=== PATIENT | female | born 1995 | race African-American/Black ===

== ENCOUNTER 2021-08-03 17:20 | Emergency (ER) | payer OTHER, SELFPAY ==
[2021-08-03 17:51] VITALS: BP 163/79; PULSE 91; RESP 20; TEMP 37.5; O2SAT 100; BMI 42.0
[2021-08-03 18:33] LABS: COVID-19 Test Positive (Negative)
--- NOTE | 2021-08-03 19:46 | ED.URI ---
HPI - URI/Sore Throat General Chief Complaint: Upper Respiratory Symptoms Stated Complaint: diff breathing covid + Time Seen by Provider: 08/03/21 19:46 Source: patient Mode of arrival: ambulatory Limitations: no limitations History of Present Illness HPI Narrative: 26-year-old female with a history of obesity, childhood asthma who presents to the ER with dry hacking cough for the last 10 days. She reports being seen at [facility] where she had a negative COVID test and was treated for bronchitis with an antibiotic and an inhaler. She continued to feel unwell despite these treatments. Earlier this week she did have 2 days of feeling much better. About 2 days ago she started feeling very weak and fatigued. Her dry hacking cough persisted. She then started spiking fevers up to 105 at home. She has been taking Tylenol with improvement in the fevers. She denies any confusion, hallucinations, seizures. MD elicited complaint: fever and cough Onset (ago): day(s) Consistency: constant Severity: moderate Able to tolerate fluids by mouth: Yes Exacerbating factors: nothing Relieving factors: nothing Context: sick contacts Associated symptoms: fever, chills, myalgias, headache, nasal congestion, sore throat and cough Treatments prior to arrival: acetaminophen Related Data Previous Rx's Medication Instructions Recorded benzonatate 100 mg capsule 100 mg PO TID PRN #30 cap 08/03/21 fluticasone propionate 50 1 spray INTRANASAL Q12H #16 g 08/03/21 mcg/actuation nasal spray,suspension (Flonase Allergy Relief) prednisone 20 mg tablet 40 mg PO DAILY #10 tab 08/03/21 Allergies Allergy/AdvReac Type Severity Reaction Status Date / Time hydrocodone [From VICODIN] Allergy Unknown HIVES, SOB Verified 08/03/21 17:50 ibuprofen [From MOTRIN] Allergy Unknown HIVES, SOB Verified 08/03/21 17:50 naproxen [NAPROXEN] Allergy Unknown HIVES, SOB Verified 08/03/21 17:50 Penicillins [PENICILLINS] Allergy Unknown HIVES Verified 08/03/21 17:50 Sulfa (Sulfonamide Allergy Unknown HIVES, SOB Verified 08/03/21 17:50 Antibiotics) [SULFA (SULFONAMIDE ANTIBIOTICS)] sumatriptan [From IMITREX] Allergy Unknown HIVES, SOB Verified 08/03/21 17:50 Review of Systems Review of Systems: Constitutional:+ Fever, + Chills ENT/Mouth: No sore throat, No Rhinorrhea, No Swallowing Difficulty Cardiovascular: No Chest Pain, No SOB, No Orthopnea Respiratory: + Cough, No Sputum, No Wheezing, No dyspnea Gastrointestinal: + Nausea, No Vomiting, No Diarrhea, No abdominal Pain Genitourinary: No Dysuria Musculoskeletal: No joint pain, No Myalgias Skin: No Skin Lesions, No rash Neuro: + Weakness, No Numbness, No Dizziness, + Headache Heme/Lymph: No Bruising, No Lymphadenopathy PMFSH Social History Social History Advance Directives: No Advance Directives Information Provided: No Physical Exam Vital Signs: Vital Signs: Last Vital Signs Temp 99.5 F 08/03/21 17:51 Pulse 91 08/03/21 17:51 Resp 20 08/03/21 17:51 BP 163/79 H 08/03/21 17:51 Pulse Ox 100 08/03/21 17:51 BMI result Body Mass Index 42.0 Appearance: Alert. Oriented X3. No acute distress. Eyes: Pupils equal, round and reactive to light. ENT: Pharynx nwith mild generalized erythema Neck: Normal inspection. Neck supple. CVS: Normal heart rate and rhythm. Pulses normal. Respiratory: No respiratory distress. Breath sounds normal. Dry cough with deep inspiration Skin: Skin warm and dry. Normal skin color. Normal skin turgor. No rashes. Extremities: No lower extremity edema. Neuro: Oriented X 3. Grossly normal, nonfocal Course Course Course Narrative: 26-year-old female who is vaccinated for COVID-19 presents to the ER with weakness, headache, dry hacking cough and a fever reported 105 at home. She is afebrile on arrival after taking Tylenol. She is in no distress with SpO2 100% on room air. Her COVID test is positive. Her most recent symptoms of weakness fatigue and headache are only 3 days old. Given her morbid obesity will refer for monoclonal antibodies. Will also give her a course of steroids and antitussive agent. Encourage follow-up with her primary care doctor. Stable for discharge home with supportive care and monoclonal antibody referral. MDM - URI/Sore Throat Lab Data Labs: Lab Results 08/03/21 Range/Units 18:14 COVID-19 ([facility]IN) Positive A (Negative) COVID-19 Clin Com See Note Discharge Plan Discharge Clinical Impression: COVID-19 Patient Disposition: Home, Self-Care Instructions: Covid-19 Viral Syndrome and Novel Coronavirus (ED) Hey/Ath Additional Instructions: You were found to be COVID-19 POSITIVE today. Your exam and oxygen levels were normal. Rest. Drink plenty of fluids. Do not go out in public for the next 7 days. If you are feeling better in 1 week you can go back to work. Take over the counter cold/flu medications as needed for your symptoms. Take Tylenol and/or Motrin as needed for fevers and body aches. Follow up with your doctor this week. Email the Monoclonal antibodies referral to the email provided and they will contact you to arrange for an appointment for infusion. Take the prescribed medications cough. If you shortness of breath worsens, if you develop difficulty breathing or any other concerning symptom come back to the ER for further evaluation. Prescriptions: New benzonatate 100 mg capsule 100 mg PO TID PRN (Reason: cough) Qty: 30 RF: 0 prednisone 20 mg tablet 40 mg PO DAILY Qty: 10 RF: 0 fluticasone propionate [Flonase Allergy Relief] 50 mcg/actuation spray,suspension 1 spray intranasal Q12H Qty: 16 RF: 0 Stand Alone Forms: Work/School Release
== END 2021-08-03 20:13 | disposition home or self-care (01) ==
PROVIDERS: Emergency Provider Internal Medicine
DX: U07.1 COVID-19 (principal)
CPT/HCPCS: 36415; 87635; 99282; 99283

== ENCOUNTER 2024-07-20 13:53 | Emergency (ER) | payer OTHER, SELFPAY ==
--- OUTSIDE RECORDS SUMMARY | 2024-07-20 13:57 | XMS_ITS | Continuity of Care Document ---
Author Organization [facility] vices Address [address] [place] [address] Phone Care Team Providers [facility] Patient Care Secretary Name Role Phone Generic Provider, [facility] Unavailable Unavailabl e Allergies, Adverse Reactions, Alerts Substance Reaction Status Criticality HYDROCODONE BITARTRATE Active No In formation acetaminophen Active No Information Sulfa (Sulfonamide Antibiotics) Hives Active No Information Penicillins Hives Active No Information naproxen Hives Active No Information ibuprofen Hives Active No Information Medications Medication Instructions Dosage Effective Dates (start - stop) Status Comments Vitamin D2 50,000 unit capsule take 1 capsule by oral route every week - Active Diflucan 150 mg tablet take 1 tablet by oral route once - Active Procedures Procedure Date URINE TEST, BY [facility] I[facility]UNIZATION ADMIN TDAP VACCINE >7 IM OFFICE/OUTPATIENT VISIT, EST IMMUNIZATION ADMIN HEP A VACCINE HepA, ADULT, IM 6 OFFICE/OUTPATIENT VISIT, EST OFFICE/OUTPATIENT VISIT, EST OFFICE/OUTPATIENT VISIT, EST URINE TEST, BY [facility] IMMUNIZATION ADMIN CHICKEN POX VACCINE CHAZ, Live, SC OFFICE/OUTPATIENT VISIT, EST OFFICE/OUTPATIENT VISIT, EST PURE TONE HEARING TEST, AIR IMMUNIZATION ADMIN CHICKEN POX VACCINE, SC OFFICE/OUTPATIENT VISIT, EST IMMUNIZATION ADMIN HEP A VACCINE, ADULT IM IMMUNIZATION ADMIN, EACH ADD FLU VACCINE NO PRESERV 3 & > OFFICE/OUTPATIENT VISIT, EST URINE TEST OFFICE/OUTPATIENT VISIT, EST OFFICE/OUTPATIENT VISIT, EST URINALYSIS NONAUTO W/O SCOPE URINE TEST OFFICE/OUTPATIENT VISIT, EST URINE TEST OFFICE/OUTPATIENT VISIT, NEW Advance Directives Directive Yes / No Effective Date File Name No Information Encounters Encounter Description Practice Location Reason(s) For Visit Diagnoses Date Provider Providers Copied on Encounter [facility], [address] [place] [address], [id number], [place] tel:[phone] [facility] Pediatric[facility] No Information 2 0-201 8 Generic Provider [facility]. . [facility], [address] [place] [address], [id number], [place] tel:[phone] [facility] No Information Nov-0 6-201 7 No Information OFFICE/OUTPA TIENT VISIT, [facility], [address] [place] [address], [id number], [place] tel:[phone] [facility] STI (chief complaint)Obe sity (chief complaint) Encounter for test, result negativeObesi tyEncounter for contraceptive managementEnc ounter for immunizationV aginal dischargeEnco unter for STD screening Apr-0 3-201 7 No Information OFFICE/OUTPA TIENT VISIT, [facility], [address] [place] [address], [facility], [place] tel:[phone] [facility] f/u (chief complaint)bc + vaginal discharge (chief complaint) Acute vaginitisImmu nization dueObesity, unspecified Jovanny-0 9-201 6 Lidia Young. [address] [place] [address], [id number] [address] [place] [address], [id number], [place]. tel:[phone] OFFICE/OUTPA TIENT VISIT, [facility], [address] [place] [address], [address], [place] tel:[phone] [facility] PCOS follow up (chief complaint)ins omnia (chief complaint) Encounter for contraceptive managementIns omnia 6 No Information OFFICE/OUTPA TIENT VISIT, [facility], [address] [place] [address], [id number], [place] tel:[phone] [facility] lab review (chief complaint) Painful micturition, unspecifiedOb esity, unspecifiedHe adacheVitamin D deficiencyAne grayson, iron deficiency, inadequate dietary intakePrediab etesPolycysti c ovaries 6 Lidia Young. [address] [facility], [id number] [address] [place] [address], [address], [place]. tel:[phone] OFFICE/OUTPA TIENT VISIT, [facility], [address] [place] [address], [id number], [place] tel:[phone] [facility] irregular menses (chief complaint) Encounter for test, result negativeEncou nter for immunizationO besityIrregul ar mensesEncount er for STD screening 6 No Information OFFICE/OUTPA TIENT VISIT, [facility], [address] [place] [address], [address], [place] tel:[phone] [facility] Headache (chief complaint)Vag inal discharge (chief complaint) HeadacheVagin al discharge 5 No Information OFFICE/OUTPA TIENT VISIT, [facility], [address] [place] [address], [address], [place] tel:[phone] [facility] lab review (chief complaint) Need for prophylactic vaccination and inoculation against varicellaENCO UNTERS FOR UNSPECIFIED ADMINISTRATIV E PURPOSEPREGNA NCY TEST - NEGATIVE RESULTEXAM EARS & HEARING NEC 5 No Information OFFICE/OUTPA TIENT VISIT, [facility], [address] [place] [address], [address], [place] tel:[phone] [facility] Musculoskelet al pain (chief complaint)TB screen (chief complaint) Screening examination for pulmonary tuberculosisI nfluenza VaccineNeed for prophylactic vaccination and inoculation against viral hepatitisParo nychiaSpecial screening for other specified conditions 5 No Information OFFICE/OUTPA TIENT VISIT, [facility], [address] [place] [address], [facility], tel:[phone] [facility] Vaginal discharge (chief complaint) Leukorrhea, not specified as infectiveScre ening examination for venereal diseaseCONTRA CEPTION, OTHER (DIAPHRAGM, ETC.)Irregula r mensesPREGNAN CY TEST - NEGATIVE RESULTNausea No Information OFFICE/OUTPA TIENT VISIT, [facility], [address] [place] [address], [facility], [place] tel:[phone] [facility] Adolescent [facility] Headache (chief complaint)All ergies (chief complaint) HeadacheSeaso nal allergic rhinitis No Information OFFICE/OUTPA TIENT VISIT, [facility], [address] [place] [address], [facility], tel:[phone] [facility] F/U (chief complaint) MyopiaCounsel ing on sexually transmitted diseasesVagin itisDysuriaRo utine Medical ExamPregnancy examination or test, unconfirmedUn specified vitamin d deficiencyHea dacheUrinary hesitancy Lidia Young. [address] [place] [address], [id number] [address] [place] [address], [facility], [place]. tel:[phone] OFFICE/OUTPA TIENT VISIT, [facility], [address] [place] [address], [facility], tel:[phone] [facility] Establish PCP (chief complaint) ObesityPREGNA NCY TEST - NEGATIVE RESULTScreeni ng examination for venereal diseaseIrregu lar mensesVaccina tion required 5 No Information Family History Family Member Type Diagnosis Age At Onset Problem (finding) Family history of hyper tension Maternal grandfather Problem (finding) Cancer, unknown (Cause Of ) Problem (finding) Family history of Diabetes mellitus Immunizations Vaccine Date Status Comments Tdap administered Note: vis given ; Source: New Immunization Record Hep A (adult) administered Source: New Im munization Record Varicella administered Source: New Imm unization Record Varicella administered Source: New Imm unization Record Influenza, seasonal, injectable, preservative free, 3 yrs or older administered Source: New Immuniza tion Record Hep A (adult) administered Source: New Im munization Record meningococcal vaccine, unspecified formulation administered Source: Other Pr ovider HPV, unspecified formulation administered Source: Other Provider MCV4 (11-55 yrs) administered Source: Oth er Provider HPV, unspecified formulation administered Source: Other Provider HPV administered Source: Other P rovider Tdap administered Source: Other P rovider measles, mumps and rubella virus vaccine administered Source: Other Provid er DTaP (younger than 7 yrs) administered So urce: Other Provider polio, inactive administered Source: Othe r Provider DTaP (younger than 7 yrs) administered So urce: Other Provider MMR administered Source: Other P rovider polio, inactive administered Source: Othe r Provider hepatitis B vaccine, adult dosage administered Source: Other Provid er DTaP (younger than 7 yrs) administered So urce: Other Provider Haemophilus influenzae type b vaccine, conjugate unspecified formulation administered Source: Other Provid er Hib (PRP-OMP) administered Source: Other Provider DTaP (younger than 7 yrs) administered So urce: Other Provider Haemophilus influenzae type b vaccine, conjugate unspecified formulation administered Source: Other Provid er polio, inactive administered Source: Othe r Provider DTaP (younger than 7 yrs) administered So urce: Other Provider hepatitis B vaccine, adult dosage administered Source: Other Provid er Haemophilus influenzae type b vaccine, conjugate unspecified formulation administered Source: Other Provid er polio, inactive administered Source: Othe r Provider Hep B (adult) administered Source: Other Provider Payers Payer name Insurance type Covered constitution party ID Authoriza tion(s) SPENCER Caro [id number] LUZN Jesus D [id number] LUZN Jesus D [id number] LUZN Jesus D [id number] LUZN Jesus D [id number] LUZN Jesus D [id number] SPENCER Lee D [id number] Social History Type Description Quantity Date Captured Comments Alcohol Use Details Unknown Caffeine Use Details Unknown Tobacco Use Status No Information Smoking Status No Information Sex Female Chief Complaint And Reason For Visit No Information Reason For Referral Reason For Referral No Information Plan Of Treatment Date Type Action Status Referral Ordered: Referrals: Neurology. Consult Appointment date/timeframe: 08/02/2015 ordered Patient Education Learning About Sleeping Well completed Patient Education Learning About Co ntrol: Combinat completed Patient Education Paronychia: After Your Visit completed Patient Education Starting a Weight Loss Plan: After You completed History Of Present Illness Encounter Date Complaint History Of Prese nt Illness STI Presently the pa tient is experiencing vaginal itching. Presently the patient is not experiencing vaginal irritation, vaginal odor and vaginal discharge. The patient is premenopausal. Last menstrual period was 08/04/2016. The patient has a history of bacterial vaginosis and yeast. The patient has no history of chlamydia, gonorrhea, herpes genitalis or trichomoniasis. Obesity Risk factors inc lude annual weight gain of > 2 lbs (1kg) / year. bc + vaginal discharge f/u Reports itchy va ginal D/C for 3 days. No abdominal pain. Hx of obesity. Has lost 2.2 lbs from last visit. Hx of PCO. On OCP. LMP-12/14/15. Has a BF for 2 years. Last sex 3 days ago. Reports good mood, no SI. No hospitalizations. Hx of migraine for 6 years. On Topamax for migraine prophylaxis. Last H/A episode a week ago. No vomiting. Wears glasses, last saw her eye doctor a year ago. On iron pills, doesn't want to repeat CBC today.Also, on MVI. Allergic to PCN, sulfa, Vicodin, naproxen, Imitrex, Motrin. 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 Denies smoking and drug abuse. Sleeps 8 hours/night. Eats breakfast daily insomnia The patient pres ents with sleep problems. The insomnia is not improved by antihistamines.. The patient is experiencing difficulty initiating sleep and difficulty maintaining sleep. The patient denies awakening with choking or awakening with shortness of breath. PCOS follow up lab review Hx of obesity. H as gained 3.6 lbs in the past 10 days. No hospitalizations. Hx of migraine for 6 years. On Topamax for migraine prophylaxis. Also, on MVI. Allergic to PCN, sulfa, Vicodin, naproxen, Imitrex, Motrin. Last H/A episode 2 days ago. No vomiting. Wears glasses, last saw her eye doctor 2 months ago. Occasional lower abdominal pain and dysuria. No vaginal D/C. 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 Denies smoking and drug abuse. Hx of PCO. LMP-09/14-. Has a BF for 2 years. Last sex 2 days ago. Reports good mood, no SI.Sleeps 8 hours/night. Eats breakfast daily irregular menses Last menstrual period was 1 Week 4 Days ago and was on 09/14/2015. Presenting / Initial symptoms include secondary amenorrhea. The patient's relevant history is negative for oral contraceptive use. Associated symptoms include hirsutism. Additional information: Seen by outside DIRECTOR INSTRUMENTATION and had pelvic US. Reports being told she has PCOS but it was recommended thats she have labs drawn at PCP as well. Headache Onset: 2 Years. Pain scale: 0/10. Locations affected include entire head. Associated symptoms include nausea, photophobia and visual aura. Pertinent negatives include fever or vomiting. Additional information: Went to [facility] ED 05-30-15 for headache. Was on firocet in the past, intially was relieved but no longer working. Given trial of amitripyline , did not help it only put me to sleep . Given imitrex in ED - had allergic reaction. Some relief with excedrin migraine. Vaginal discharge Presently the patient is experiencing vaginal discharge. Presently the patient is not experiencing vaginal itching, vaginal irritation and vaginal odor. The patient is premenopausal. She denies fever. lab review Presents to the office for lab review. Seen 04-24-15 to have employed forms updated. Needed TB screen and varicella titer with results as follows: Musculoskeletal pain Onset: 3 da ys ago. Severity level is 7. Additional information: Right middle finger pain. Woke up with pain. Reports no injury. TB screen Needs forms comp leted for [facility]. Forms require physical and TB screen. Vaginal discharge Presently the patient is experiencing vaginal discharge. Color is white. Presently the patient is not experiencing vaginal itching, vaginal irritation and vaginal odor. The patient is premenopausal. Last menstrual period was 12/17/2014. Her symptoms are associated with pelvic pain, nausea and dizziness but she denies fever, genital lesions, genital rash or itching skin of vaginal/groin. Headache Onset: 5 Years. Pain scale: 6/10. Locations affected include bilateral frontal and bilateral temporal. Associated symptoms include dizziness, nausea, phonophobia and photophobia. Pertinent negatives include diplopia, fever, vision loss left, vision loss right, visual aura or vomiting. Additional information: Having 3-4 headaches a week. Past use of a PRN for headaches. No daily medications. Allergies The patient pres ents with burning in eyes, itchy eyes and sneezing. The symptoms are felt to be related to spring season and summer season. The patient is also experiencing dizziness, headache, nausea and sneezing. Additional information: Has used claritin and allergra together with some relief. F/U Reports urinary hesitancy, abdominal pain, nausea, for 2 days no fever, no vomiting. White vaginal D/C.No hospitalizations. On vitamin D. Allergic to PCN, sulfa, Vicodin, naproxen , Motrin. Hx of migraine for 5 years. Last episode yesterday. 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 Denies smoking and drug abuse. LMP-10/20/14. Has a BF for 10 months. Last sex yesterday. Reports good mood, no SI.Sleeps 9 hours/night. Eats breakfast daily Establish PCP Presents to the office to [facility]. Functional Status Date Functional Assessmen t No Information Instructions Date Instruction Additional Infor tarsha STD prevention strat egies : abstinence, mutual monogamy with an uninfected partner, use of condoms, and limiting the number of sex partners. Related to Encounter for STD screening Gained an additional 12 lbs over the past year. Stressed need for weight loss.Recommend 30 minutes of physical activity daily, 3 healthy meals and 2 snacks, adequate servings of fruits, vegetables, low fat dairy and lean meats. Related to Obesity Will treat for suspe cted yeast infection and send vaginitis probe for completeness. Difuclcain as prescribed. Avoid scented products: douches, scented feminine hygiene products, deodorant soaps, body washes and body sprays. Wear cotton underwear. Wipe front to back. Related to Vaginal discharge Refiiled patch as re quested. Advised no smoking due to increased risk for blood clot. Related to Encounter for contraceptive management Educated verbally an d in writing about diagnosis and treatment. Given patient education hand out as seen attached to chart. Discussed sleep hygiene, limiting caffiene and electronics at bedtime. To purchase melatonin 5 mg ER. Follow up if not improved. Related to Insomnia Educated verbally an d in writing about diagnosis and treatment. Given patient education hand out as seen attached to chart. Start OCPs today. Use condoms as back-up method throughout first pill cycle. Condoms suggested for STD protection. Take OCPs at the same time each day. Danger signs reviewed including risk of blood clot. Related to Encounter for contraceptive management GC/ CT defered as do ne at [facility]. HIV/ RPR screen as ordered. Related to Encounter for STD screening Follow up after 10-23 for Hep A # 2. Related to Encounter for immunization Stressed need for we ight loss. . Recommended 30 minutes of physical activity daily, 3 healthy meals and 2 snacks, adequate servings of fruits, vegetables, low fat dairy and lean meats. Labs as ordered. Referral to [facility] safe deposit box rental clerk. Related to Obesity Further plan pending vaginitis proce reuslts. To book appt for PAP. Related to Vaginal discharge Trial of topamax citlali ly. May use excedrin migraine for symptom releif. Follow up in 2 weeks to consider increasing dose. Referral to nuerology due to no relief with multiple treatments. Related to Headache Was scheduled for fi rst PAP today but could not stay for longer appt. She is to rechedule. Related to EXAM EARS & HEARING NEC Employer forms compl eted and provided to patient. Related to ENCOUNTERS FOR UNSPECIFIED ADMINISTRATIVE PURPOSE Given varicella # 1 by [employer] today. Follow up for varicella # 2 in 1 month. Related to Need for prophylactic vaccination and inoculation against varicella Educated verbally an d in writing about diagnosis and treatment. Given patient education hand out as seen attached to chart.Warm compresses and PO antibiotic as prescribed. Follow up in 3 days. If worse or for fever go to Emergency room. Related to Paronychia Varicella titer due to incomplete record. Related to Special screening for other specified conditions Given Hep A # 1 by Frankie PN. FOllow up for Hep A # 2 in 6 months. Related to Need for prophylactic vaccination and inoculation against viral hepatitis TB screen ordered as required by employer. Related to Screening examination for pulmonary tuberculosis Given flu vaccine by [employer]. Relate d to Influenza Vaccine r.o h pylori. Other labs recently WNL. Related to Nausea See above plan. Related to Irreg ular menses Previous use of patc h. Would like to restart. Course of provera, if positive withdrawel bleed may resume patch as ordered. Start the patch on the first day of menses. Use condoms as back-up method for one month.Condoms suggested for STD protection. Change the patch weekly for 3 weeks followed by a patch free week. Related to CONTRACEPTION, OTHER (DIAPHRAGM, ETC.) Further plan pending vaginitis probe results. Related to Leukorrhea, not specified as infective r/o STDs as cause fo r symptoms. STD prevention strategies : abstinence, mutual monogamy with an uninfected partner, use of condoms, and limiting the number of sex partners. Related to Screening examination for venereal disease Flonase and pataday as prescribed for symptoms. Follow up in 3 weeks. Related to Seasonal allergic rhinitis Headache diary as pr ovided. To purchase OTC excedrin migraine and use as directed if she has a headache. Start amitriptyline as ordered for preventative treatment. Follow up in 3 weeks. To ED for increased severaoty of headaches or having the worst headache of life. Related to Headache New patient. No vacc ine record on file. She believes she is up to date with vaccines. Advised to bringcopy of record to the office for review and update. Related to Vaccination required Has tried pills and patch and complaints of headaches and not feeling well on methods. Not interested in any other form of contraceptives at thsi time. Discussed waiting 2-3 more weeks for menses. If no menses return to the office to discuss provera use. Related to Irregular menses Not interested any h ormonal contraceptives at this time. Stressed need for consistent condom use to prevent . Educated on Plan B when and if ever needed. Related to TEST - NEGATIVE RESULT GC/ CT screen deferr ed until PAP which will be scheduled after 20st birthday. STD prevention strategies : abstinence, mutual monogamy with an uninfected partner, use of condoms, and limiting the number of sex partners. Related to Screening examination for venereal disease Has lost weight over the past several months. Encouraged continued efforts. Educated verbally and in writing about diagnosis and treatment. Given patient education hand out as seen attached to chart. Labs as ordered. Related to Obesity Dietary needs education Related to Obesity, unspecified Assessments Type Assessment Date No Information Patient Care Teams Name Effective Dates (start - stop) Status Members No Information
[2024-07-20 13:59] VITALS: BP 125/72; PULSE 99; RESP 16; TEMP 36.8; O2SAT 99; BMI 32.7
--- NOTE | 2024-07-20 14:04 | ECG_ITS ---
Test Reason : SYNCOPE Blood Pressure : / mmHG Vent. Rate : 083 BPM Atrial Rate : 083 BPM P-R Int : 164 ms QRS Dur : 072 ms QT Int : 336 ms P-R-T Axes : 056 034 019 degrees QTc Int : 394 ms Normal sinus rhythm with sinus arrhythmia Normal ECG When compared with ECG of 10-JUN-2017 14:08, No significant change was found Referred By: Woo Araujo Electronically Signed By:JHOANA PERKINS
--- NOTE | 2024-07-20 14:04 | ED_ITS ---
HPI - General Adult General Chief complaint: Syncope Stated complaint: Low BP, low oxygen - sent by urgent care Time Seen by Provider: 07/20/24 21:54 Source: patient Mode of arrival: ambulatory Limitations: no limitations History of Present Illness ED Provider: HPI narrative: Patient with history of complicated pyelonephritis DC from substances on 06/23 patient has been feeling much better since then apparently patient had food that she had lunch at [employer] went home since last night noticed cramping in lower abdomen went to bathroom has a loose bowel with cold sweats and while walking to the room patient's passed out patient does have slight nausea at 1 more bowel movements which was also loose been complaining of cramping lower abdomen and been feeling dizzy no chest pain no palpitation patient is currently on menstruation Related Data Previous Rx's ?Medication ?Instructions ?Recorded benzonatate 100 mg capsule 100 mg PO TID PRN cough #30 caps 08/03/21 fluticasone propionate 50 1 spray intranasal Q12H #16 grams 08/03/21 mcg/actuation nasal spray,suspension (Flonase Allergy Relief) prednisone 20 mg tablet 40 mg (2 x 20 mg) PO DAILY #10 tabs 08/03/21 dicyclomine 20 mg tablet 20 mg PO TID PRN Abdominal 07/21/24 Discomfort #20 tabs ondansetron 4 mg disintegrating 4 mg PO Q6-8H PRN nausea and 07/21/24 tablet vomiting #7 tabs Allergies Allergy/AdvReac Type Severity Reaction Status Date / Time acetaminophen [Vicodin] Allergy Unknown hives Verified 07/20/24 14:02 hydrocodone [From VICODIN] Allergy Unknown HIVES, SOB Verified 07/20/24 14:02 ibuprofen [From MOTRIN] Allergy Unknown HIVES, SOB Verified 07/20/24 14:02 naproxen [NAPROXEN] Allergy Unknown HIVES, SOB Verified 07/20/24 14:02 Penicillins [PENICILLINS] Allergy Unknown HIVES Verified 07/20/24 14:02 Sulfa (Sulfonamide Allergy Unknown HIVES, SOB Verified 07/20/24 14:02 Antibiotics) [SULFA (SULFONAMIDE ANTIBIOTICS)] sumatriptan [From IMITREX] Allergy Unknown HIVES, SOB Verified 07/20/24 14:02 ketamine Allergy Hives Verified 07/20/24 14:02 penicillin AdvReac Unknown hives Uncoded 07/20/24 14:02 sulfa AdvReac Unknown hives Uncoded 07/20/24 14:02 Review of Systems 2 Review of Systems: Yes all other systems are reviewed and are negative [facility] Social History Social History Smoked in Last 30 Days: No Use of substances other than those prescribed or required for medical reasons: No Advance Directives: No Advance Directives Information Provided: No Do you have a plan to hurt others: No Plan Patient : No Physical Exam ED Vital Signs: Vital Signs - 24 hr 07/20/24 13:59 07/20/24 20:00 07/20/24 22:23 Temperature 98.2 F 98.4 F 97.8 F Pulse Rate 99 77 83 Respiratory Rate 16 16 14 Blood Pressure 125/72 110/72 137/77 Pulse Oximetry 99 100 100 Oxygen Delivery Method Room Air Room Air Room Air 07/20/24 22:49 07/20/24 23:34 Temperature 98.1 F Pulse Rate 94 Respiratory Rate 17 18 Blood Pressure 118/71 Pulse Oximetry 100 Oxygen Delivery Method Room Air BMI result Body Mass Index 32.7 Appearance: Alert. Oriented X3. No acute distress. Eyes: PERRLA, No Nystagmus ENT: Pharynx normal. Oral Mucosa moist Neck: Normal inspection. Neck supple. CVS: Normal heart rate and rhythm. Pulses normal. Respiratory: No respiratory distress. Equal air entry bilateral, no wheezing/rales/rhonchi Abdomen: Soft and mild diffuse tenderness lower abdomen no focal tenderness Bowel sounds are present, no mass palpable, no CVA tenderness Skin: Skin warm and dry. Normal skin color. Normal skin turgor. Extremities: No lower extremity edema. No calf tenderness Neuro: Oriented X 3. No motor deficit. No sensory deficit.No cerebellar signs , cranial nerves II-XII intact Course Course Course Narrative: RME, this is a rapid medical exam performed by Torres Araujo please refer to primary provider for complete H&P- 29 old female presents for evaluation of a syncopal episode that happened around 3:00 a.m. when she got up to use the bathroom. She reports that from 06/14-06/19 of this year she [place] [facility] [place] She reports a couple of weeks later she was at [facility] both for complicated pyelonephritis. She went to urgent care today and was told that she was ?hypotensive and tachycardic. She reports feeling somewhat better now. Plan for labs, EKG, blood cultures, urinalysis Medications Administered Discontinued Medications Generic Name Dose Route Start Last Admin Trade Name Yesy PRN Reason Stop Dose Admin Dicyclomine HCl 20 mg 07/20/24 22:31 07/20/24 22:49 Dicyclomine Hcl 10 Mg Capsule PO 07/20/24 22:32 20 mg ONCE ONE Administration Sodium Chloride 1,000 mls @ 999 mls/hr 07/20/24 22:25 07/21/24 01:23 Ns IV 07/20/24 23:25 Infused .Q1H1M ONE Infusion Ketorolac Tromethamine 30 mg 07/21/24 00:11 07/21/24 00:43 Ketorolac Tromethamine 30 Mg/Ml Vial IVPUSH 07/21/24 00:12 30 mg ONCE ONE Administration Morphine Sulfate 4 mg 07/20/24 22:26 07/20/24 22:49 Morphine Sulfate 4 Mg/Ml Cartridge IVPUSH 07/20/24 22:27 4 mg ONCE ONE Administration Protocol Ondansetron HCl 4 mg 07/20/24 22:26 07/20/24 22:49 Ondansetron Hcl 4 Mg/2 Ml Vial IVPUSH 07/20/24 22:27 4 mg ONCE ONE Administration Medical Decision Making Medical Decision Making [facility] Narrative: Patient has acute gastroenteritis likely colitis after eating food at a restaurant labs are stable patient is eating food in the ER no diarrhea noticed vomiting will discharge patient home Lab Data [facility] Lab Attestation statement: I reviewed the patient's lab results. 07/20/24 14:18 07/20/24 14:18 Labs: Lab Results 07/20/24 07/20/24 Range/Units 14:18 19:51 WBC 7.1 (4.8-10.8) X10*3/uL RBC 3.73 L (4.20-5.50) X10*6/uL Hgb 11.6 L (12.0-16.0) g/dl Hct 34.1 L (37.0-47.0) % MCV 91.4 (80.0-98.0) fL MCH 31.1 (27.0-33.0) pg MCHC 34.0 (31.0-35.0) g/dl RDW 13.3 (11.0-16.0) % Plt Count 237 (160-400) X10*3/uL MPV 9.6 (9.4-12.3) fL Immature Gran % (Auto) 0.3 (0.0-0.4) % Neut % (Auto) 51.8 (45-73) % Lymph % (Auto) 38.8 (20-40) % [place] % (Auto) 7.2 (2-11) % Eos % (Auto) 1.5 (0-4) % Baso % (Auto) 0.4 (0-2) % Lymph # (Auto) 2.8 (1.2-4.9) X10*3/uL [place] # (Auto) 0.5 (0.1-1.2) X10*3/uL Eos # (Auto) 0.1 (0.0-0.4) X10*3/uL Baso # (Auto) 0.0 (0.0-0.2) X10*3/uL Abs Immat Gran (auto) 0.02 (0.00-0.03) X10*3/uL Absolute Neuts (auto) 3.7 (2.0-8.3) x10*3/uL Absolute Nucleated RBC 0.000 (0.0-0.012) X10*3/uL Nucleated RBC % (auto) 0.0 (0.0-0.2) /100WBC PT 11.0 (10.9-12.4) SEC INR 0.9 (0.9-1.1) Sodium 139 (135-145) mmol/L Potassium 3.5 (3.3-5.1) mmol/L Chloride 107 (96-108) mmol/L Carbon Dioxide 28 (22-29) mmol/L Anion Gap 8 L (12-20) BUN 8 L (9-16) mg/dL Creatinine 0.65 (0.5-1.4) mg/dL Estim Creat Clear Calc 124.9 Estimated GFR > 60 Random Glucose 77 (60-115) mg/dL Lactic Acid 0.6 (0.5-2.0) mmol/L Calcium 8.9 (8.4-10.2) mg/dL Total Bilirubin 0.1 (0.0-1.0) mg/dL AST 21 (5-31) U/L ALT 14 (0-31) U/L Alkaline Phosphatase 59 (39-117) U/L Troponin I High Sens < 2.7 (<3.5-17.0) ng/L Total Protein 7.4 (6.5-8.0) g/dL Albumin 4.2 (3.5-5.0) g/dL Lipase 30 (8-78) U/L Beta HCG, Quant < 2 mIU/mL Urine Color [place] A Urine Appearance Cloudy Urine pH 5.5 (5.0-9.0) Ur Specific [place] 1.025 (1.005-1.025) Urine Protein 30 (1+) H (Neg-Trace) mg/dL Urine Glucose (UA) Negative (Negative) mg/dL Urine Ketones Trace (Negative) mg/dL Urine Blood Large (3+) H (Negative) Urine Nitrite Negative (Negative) Ur Leukocyte Esterase Small (1+) H (Negative) Urine RBC >20 H (0-2) /HPF Urine WBC 21-50 H (0-5) /HPF Ur Squamous Epith Cells 6-10 (0-2) /HPF Urine Bacteria None Seen (None Seen) Hyaline Casts 0-2 (0-2) /LPF Influenza Type A (PCR) NEGATIVE (Negative) Influenza Type B (PCR) NEGATIVE (Negative) RSV RNA Qual (PCR) NEGATIVE (Negative) SARS-CoV-2 RNA (RT-PCR) NEGATIVE (Negative) Discharge Plan Discharge Clinical Impression: Acute gastroenteritis Patient Disposition: Home, Self-Care Instructions: Gastroenteritis (ED) Additional Instructions: Likely have infection from Clostridium perfringens Drink plenty of fluids Medicine for nausea as prescribed Take dicyclomine for abdominal cramps Follow with your PCP if not better Prescriptions: New dicyclomine 20 mg tablet 20 mg PO TID PRN (Reason: Abdominal Discomfort) Qty: 20 0RF ondansetron 4 mg tablet,disintegrating 4 mg PO Q6-8H PRN (Reason: nausea and vomiting) Qty: 7 0RF No Action benzonatate 100 mg capsule 100 mg PO TID PRN (Reason: cough) Qty: 30 0RF prednisone 20 mg tablet 40 mg PO DAILY Qty: 10 0RF fluticasone propionate [Flonase Allergy Relief] 50 mcg/actuation spray,suspension 1 spray intranasal Q12H Qty: 16 0RF Rx Instructions: administer into each nostril Interventions: ED Discharge Assessment Last Done: 07/21/24 01:21 Discharge Date/Time: 07/21/24 01:22 Print Language: Czech
[2024-07-20 14:25] LABS: MANUAL DIFF FLAG NO
[2024-07-20 14:26] LABS: Basophils Percent Auto 0.4 % (0-2); Eosinophils Absolute Auto 0.1 X10*3/uL (0.0-0.4); Eosinophils Percent Auto 1.5 % (0-4); Hematocrit 34.1 % (37.0-47.0); Hemoglobin 11.6 g/dl (12.0-16.0); Imm Gran Abs Auto 0.02 X10*3/uL (0.00-0.03); Imm Gran Pct Auto 0.3 % (0.0-0.4); Lymphocytes Absolute Auto 2.8 X10*3/uL (1.2-4.9); Lymphocytes Percent Auto 38.8 % (20-40); Mean Corpuscular Hemoglobin 31.1 pg (27.0-33.0); Mean Corpuscular Volume 91.4 fL (80.0-98.0); Mean Platelet Volume 9.6 fL (9.4-12.3); Monocytes Absolute Auto 0.5 X10*3/uL (0.1-1.2); Monocytes Percent Auto 7.2 % (2-11); Neutrophils Absolute Auto 3.7 x10*3/uL (2.0-8.3); Neutrophils Percent Auto 51.8 % (45-73); Platelet Count 237 X10*3/uL (160-400); Red Blood Count 3.73 X10*6/uL (4.20-5.50); Red Cell Distribution Width 13.3 % (11.0-16.0); White Blood Count 7.1 X10*3/uL (4.8-10.8)
[2024-07-20 14:33] LABS: INTERNATIONAL NORM RATIO 0.9 (0.9-1.1)
[2024-07-20 14:40] LABS: Alanine Aminotransferase 14 U/L (0-31); Albumin Level 4.2 g/dL (3.5-5.0); Alkaline Phosphatase 59 U/L (39-117); Anion Gap 8 (12-20); Aspartate Amino Transferase 21 U/L (5-31); Bilirubin Total 0.1 mg/dL (0.0-1.0); Blood Urea Nitrogen 8 mg/dL (9-16); Calcium 8.9 mg/dL (8.4-10.2); Carbon Dioxide 28 mmol/L (22-29); Chloride 107 mmol/L (96-108); Creatinine Clr Calc Pharmacy 124.9; Estimated Glomerular Filt Rate > 60; Glucose Random 77 mg/dL (60-115); Lactic Acid 0.6 mmol/L (0.5-2.0); Lipase 30 U/L (8-78); Potassium 3.5 mmol/L (3.3-5.1); Sodium 139 mmol/L (135-145); Total Protein 7.4 g/dL (6.5-8.0)
[2024-07-20 14:47] LABS: Troponin-I High Sensitivity < 2.7 ng/L (<3.5-17.0)
[2024-07-20 14:48] LABS: HCG Quantitative < 2 mIU/mL
[2024-07-20 20:00] VITALS: BP 110/72; PULSE 77; RESP 16; TEMP 36.9; O2SAT 100
[2024-07-20 20:03] LABS: Appearance Urine Cloudy; Color Urine Orange; Glucose Urine UA Negative (Negative); Leukocyte Esterase Urine Small (1+) (Negative); Nitrite Urine Negative (Negative); PH 5.5 (5.0-9.0); Specific Gravity - Urine 1.025 (1.005-1.025); UMIC TRIGGER UACC YES; Urine Blood Large (3+) (Negative); Urine Ketones Trace mg/dL (Negative); Urine Protein 30 (1+) mg/dL (Neg-Trace)
[2024-07-20 20:04] LABS: Bacteria Urine None Seen (None Seen); Hyaline Casts Urine 0-2 /LPF (0-2); RBC Urine >20 /HPF (0-2); UACC Culture Trigger YES; WBC Urine 21-50 /HPF (0-5)
--- OUTSIDE RECORDS SUMMARY | 2024-07-20 20:23 | XMS_ITS | Continuity of Care Document ---
Author Organization [facility] vices Address [address] [place] [address] Phone Care Team Providers Care Speech Pathologist Assistant Name Role Phone Generic Provider, [facility] Unavailable Unavailabl e Allergies, Adverse Reactions, Alerts [...] Diagnoses Date Provider Providers Copied on Encounter [facility], [address] [place] [address], [id number], [place] tel:[phone] [facility] Pediatrics No Information 2 0-201 8 Generic Provider [facility]. . [facility], [address] [place] [address], [id number], [place] tel:[phone] [facility] Adolescent Health No Information Nov-0 6-201 7 No Information OFFICE/OUTPA TIENT VISIT, [facility], [address] [place] [address], [id number], [place] tel:[phone] [facility] Adolescent Health STI (chief complaint)Obe sity (chief complaint) Encounter for test, result negativeObesi tyEncounter for contraceptive managementEnc ounter for immunizationV aginal dischargeEnco unter for STD screening Apr-0 3-201 7 No Information OFFICE/OUTPA TIENT VISIT, [facility], [address] [place] [address], [facility], [place] tel:[phone] [facility] Adolescent Health f/u (chief complaint)bc + vaginal discharge (chief complaint) Acute vaginitisImmu nization dueObesity, unspecified Jovanny-0 9-201 6 Lidia Young. [address] [place] [address], [id number] [address] [place] [address], [id number], [place]. tel:[phone] OFFICE/OUTPA TIENT VISIT, [facility], [address] [place] [address], [address], [place] tel:[phone] [facility] Adolescent Health PCOS follow up (chief complaint)ins omnia (chief complaint) Encounter for contraceptive managementIns omnia 6 No Information OFFICE/OUTPA TIENT VISIT, [facility], [address] [place] [address], [address], [place] tel:[phone] [facility] Adolescent Health lab review (chief complaint) Painful micturition, unspecifiedOb esity, unspecifiedHe adacheVitamin D deficiencyAne grayson, iron deficiency, inadequate dietary intakePrediab etesPolycysti c ovaries 6 Lidia Young. [address] [facility], [id number] [address] [place] [address], [id number], [place]. tel:[phone] OFFICE/OUTPA TIENT VISIT, [facility], [address] [place] [address], [id number], [place] tel:[phone] [facility] Adolescent Health irregular menses (chief complaint) Encounter for test, result negativeEncou nter for immunizationO besityIrregul ar mensesEncount er for STD screening 6 No Information OFFICE/OUTPA TIENT VISIT, [facility], [address] [place] [address], [id number], [place] tel:[phone] [facility] Adolescent Health Headache (chief complaint)Vag inal discharge (chief complaint) HeadacheVagin al discharge 5 No Information OFFICE/OUTPA TIENT VISIT, [facility], [address] [place] [address], [id number], [place] tel:[phone] [facility] Adolescent Health lab review (chief complaint) Need for prophylactic vaccination and inoculation against varicellaENCO UNTERS FOR UNSPECIFIED ADMINISTRATIV E PURPOSEPREGNA NCY TEST - NEGATIVE RESULTEXAM EARS & HEARING NEC 5 No Information OFFICE/OUTPA TIENT VISIT, [facility], [address] [place] [address], [address], [place] tel:[phone] [facility] Adolescent Health Musculoskelet al pain (chief complaint)TB screen (chief complaint) Screening examination for pulmonary tuberculosisI nfluenza VaccineNeed for prophylactic vaccination and inoculation against viral hepatitisParo nychiaSpecial screening for other specified conditions 5 No Information OFFICE/OUTPA TIENT VISIT, [facility], [address] [place] [address], [facility], tel:[phone] [facility] Adolescent Health Vaginal discharge (chief complaint) Leukorrhea, not specified as infectiveScre ening examination for venereal diseaseCONTRA CEPTION, OTHER (DIAPHRAGM, ETC.)Irregula r mensesPREGNAN CY TEST - NEGATIVE RESULTNausea No Information OFFICE/OUTPA TIENT VISIT, [facility], [address] [place] [address], [facility], [place] tel:[phone] [facility] Adolescent [facility] Headache (chief complaint)All ergies (chief complaint) HeadacheSeaso nal allergic rhinitis No Information OFFICE/OUTPA TIENT VISIT, [facility], [address] [place] [address], [facility], tel:[phone] [facility] Adolescent Health F/U (chief complaint) MyopiaCounsel ing on sexually transmitted diseasesVagin itisDysuriaRo utine Medical ExamPregnancy examination or test, unconfirmedUn specified vitamin d deficiencyHea dacheUrinary hesitancy Lidia Young. [address] [place] [address], [id number] [address] [place] [address], [facility], [place]. tel:[phone] OFFICE/OUTPA TIENT VISIT, [facility], [address] [place] [address], [facility], tel:[phone] [facility] Adolescent Health Establish PCP (chief complaint) ObesityPREGNA [...] Provider Payers Payer name Insurance type Covered democrat ID Authoriza tion(s) SPENCER Caro [id number] LUZN Jesus D [id number] LUZN Jesus D [id number] SPENCER Lee D [id number] LUZN Jesus D [id number] SPENCER Lee D [id number] SPENCER Lee D [id number] Social History Type Description Quantity Date Captured [...] Date Complaint History Of Prese nt Illness Obesity Risk factors inc lude annual weight gain of > 2 lbs (1kg) / year. STI Presently the pa tient is experiencing vaginal itching. Presently the patient is not experiencing vaginal irritation, vaginal odor and vaginal discharge. The patient is premenopausal. Last menstrual period was 08/04/2016. The patient has a history of bacterial vaginosis and yeast. The patient has no history of chlamydia, gonorrhea, herpes genitalis or trichomoniasis. f/u Reports itchy va ginal D/C for [...] Vicodin, naproxen, Imitrex, Motrin. 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 Denies smoking and drug abuse. Sleeps 8 hours/night. Eats breakfast daily bc + vaginal discharge PCOS follow up insomnia The patient pres ents with sleep problems. The insomnia is not improved by antihistamines.. The patient is experiencing difficulty initiating sleep and difficulty maintaining sleep. The patient denies awakening with choking or awakening with shortness of breath. lab review Hx of obesity. H as [...] dysuria. No vaginal D/C. 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 Denies smoking and drug abuse. Hx of [...] include hirsutism. Additional information: Seen by outside ADVICE NURSE and had pelvic US. Reports being told she has PCOS but it was recommended thats she have labs drawn at PCP as well. Vaginal discharge Presently the patient is experiencing vaginal discharge. Presently the patient is not experiencing vaginal itching, vaginal irritation and vaginal odor. The patient is premenopausal. She denies fever. Headache Onset: 2 Years. Pain scale: 0/10. Locations affected include entire head. Associated symptoms include nausea, photophobia and visual aura. Pertinent negatives include fever or vomiting. Additional information: Went to [facility] ED 05-30-15 for headache. Was on firocet in the past, intially was relieved but no longer working. Given trial of amitripyline , did not help it only put me to sleep . Given imitrex in ED - had allergic reaction. Some relief with excedrin migraine. lab review Presents to the office for lab review. Seen 04-24-15 to have employed forms updated. Needed TB screen and varicella titer with results as follows: TB screen Needs forms comp leted for [employer]. Forms require physical and TB screen. Musculoskeletal pain Onset: 3 da ys ago. Severity level is 7. Additional information: Right middle finger pain. Woke up with pain. Reports no injury. Vaginal discharge Presently the patient is experiencing vaginal discharge. Color is white. Presently the patient is not experiencing vaginal itching, vaginal irritation and vaginal odor. The patient is premenopausal. Last menstrual period was 12/17/2014. Her symptoms are associated with pelvic pain, nausea and dizziness but she denies fever, genital lesions, genital rash or itching skin of vaginal/groin. Allergies The patient pres ents with burning in eyes, itchy eyes and sneezing. The symptoms are felt to be related to spring season and summer season. The patient is also experiencing dizziness, headache, nausea and sneezing. Additional information: Has used claritin and allergra together with some relief. Headache Onset: 5 Years. Pain scale: 6/10. Locations affected include bilateral frontal and bilateral temporal. Associated symptoms include dizziness, nausea, phonophobia and photophobia. Pertinent negatives include diplopia, fever, vision loss left, vision loss right, visual aura or vomiting. Additional information: Having 3-4 headaches a week. Past use of a PRN for headaches. No daily medications. F/U Reports urinary hesitancy, abdominal pain, nausea, for 2 days no fever, no vomiting. White vaginal D/C.No hospitalizations. On vitamin D. Allergic to PCN, sulfa, Vicodin, naproxen , Motrin. Hx of migraine for 5 years. Last episode yesterday. 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 Denies smoking and drug abuse. LMP-10/20/14. Has [...] GC/ CT defered as do ne at [facility]. HIV/ RPR screen as ordered. Related to Encounter for STD screening Follow up after 10-23 for Hep A # 2. Related to Encounter for immunization Stressed need for we ight loss. . Recommended 30 minutes of physical activity daily, 3 healthy meals and 2 snacks, adequate servings of fruits, vegetables, low fat dairy and lean meats. Labs as ordered. Referral to [facility] transit mixer operator. Related to Obesity Further plan pending vaginitis [...] Related to EXAM EARS & HEARING NEC Given varicella # 1 by [employer] today. Follow up for varicella # 2 in 1 month. Related to Need for prophylactic vaccination and inoculation against varicella Employer forms compl eted and provided to patient. Related to ENCOUNTERS FOR UNSPECIFIED ADMINISTRATIVE PURPOSE Educated verbally an d in writing about diagnosis and treatment. Given patient education hand out as seen attached to chart.Warm compresses and PO antibiotic as prescribed. Follow up in 3 days. If worse or for fever go to Emergency room. Related to Paronychia Varicella titer due to incomplete record. Related to Special screening for other specified conditions TB screen ordered as required by employer. Related to Screening examination for pulmonary tuberculosis Given flu vaccine by [employer]. Relate d to Influenza Vaccine Given Hep A # 1 by Frankie QUINTEROS. FOllow up for Hep A # 2 in 6 months. Related to Need for prophylactic vaccination and inoculation against viral hepatitis r.o h pylori. Other labs recently WNL. Related to Nausea Previous use of patc h. Would like to restart. Course of provera, if positive withdrawel bleed may resume patch as ordered. Start the patch on the first day of menses. Use condoms as back-up method for one month.Condoms suggested for STD protection. Change the patch weekly for 3 weeks followed by a patch free week. Related to CONTRACEPTION, OTHER (DIAPHRAGM, ETC.) See above plan. Related to Irreg ular menses Further plan pending vaginitis probe results. Related to Leukorrhea, not specified as infective r/o STDs as cause fo r symptoms. STD prevention strategies : abstinence, mutual monogamy with an uninfected partner, use of condoms, and limiting the number of sex partners. Related to Screening examination for venereal disease Headache diary as pr ovided. To purchase OTC excedrin migraine and use as directed if she has a headache. Start amitriptyline as ordered for preventative treatment. Follow up in 3 weeks. To ED for increased severaoty of headaches or having the worst headache of life. Related to Headache Flonase and pataday as prescribed for symptoms. Follow up in 3 weeks. Related to Seasonal allergic rhinitis New patient. No vacc ine record on [...]
[2024-07-20 20:39] LABS: Influenza A PCR NEGATIVE (Negative); Influenza B PCR NEGATIVE (Negative); Resp Syncy Virus RNA Qual PCR NEGATIVE (Negative); SARS COV2 PCR INHOUSE NEGATIVE (Negative)
--- NOTE | 2024-07-20 21:44 | PC.NURSE ---
pt from home, a&ox, respirations even and unlabored. pt reporting onset of syncopal episode while on the toilet, reports head strike, denies blood cultures. pt reports she was just treated for kidney infection in june and reports she was just seen at [facility] to be assessed for UTI. pt at this time denies any urinary symptoms, denies headache. vss.
[2024-07-20 22:23] VITALS: BP 137/77; PULSE 83; RESP 14; TEMP 36.6; O2SAT 100
[2024-07-20] MEDS: 0.9 % Sodium Chloride 1,000 ML 999 ML IV (22:48)
[2024-07-20 22:49] VITALS: RESP 17
[2024-07-20] MEDS: Dicyclomine HCl 10 MG CAPSULE 20 MG PO (22:49)
[2024-07-20] MEDS: ondansetron HCL 4 MG/2 ML VIAL IVPUSH (22:49)
[2024-07-20] MEDS: Morphine Sulfate 4 MG/ML CARTRIDGE IVPUSH (22:49)
--- NOTE | 2024-07-20 22:54 | PC.NURSE ---
20G placed in left ac, fluids administered, pt medicated per oct for 9/10 pain, pt medicated and tolerated well with water.
[2024-07-20 23:34] VITALS: BP 118/71; PULSE 94; RESP 18; TEMP 36.7; O2SAT 100
--- NOTE | 2024-07-20 23:46 | MHC.EDTECH ---
This tech took over care of pt at 2300,rounded and introduced self to pt,vitals taken,pt appears comfortable,call solomon in reach
[2024-07-21] MEDS: Ketorolac Tromethamine 30 MG/ML VIAL IVPUSH (00:43)
--- NOTE | 2024-07-21 00:50 | PC.NURSE ---
pt reporting increased 9/10 pain at this time, pt medicated per mar.
[2024-07-21 01:21] VITALS: BP 118/71; PULSE 94; RESP 18; TEMP 36.7; O2SAT 100
== END 2024-07-21 01:22 | disposition home or self-care (01) ==
PROVIDERS: Physician Assistant; Emergency Provider Internal Medicine
DX: K52.9 Noninfective gastroenteritis and colitis, unspecified (principal); R11.2 Nausea with vomiting, unspecified; I49.8 Other specified cardiac arrhythmias; Z03.818 Encounter for observation for suspected exposure to other biological agents ruled out; Z79.899 Other long term (current) drug therapy
CPT/HCPCS: 0241U; 80053; 81001; 83605; 83690; 84484; 84702; 85025; 85610; 87040; 87086; 87147; 93005; 96361; 96374; 96375; 99284; 99285; J1885; J2270; J2405

== ENCOUNTER → 2024-07-20 14:04 | Outpatient (BNV) | payer OTHER, SELFPAY | PROVIDERS: Visit Provider Internal Medicine | DX: R55 Syncope and collapse (principal) | CPT/HCPCS: 93010 ==

== ENCOUNTER 2024-10-13 14:52 | Emergency (ER) | payer OTHER, SELFPAY ==
--- NOTE | ~2024-10-13 | XR_ITS ---
EXAMINATION: XR ABDOMEN KUB CLINICAL INDICATION: pain; rule out constipation. COMPARISON: None available. TECHNIQUE: AP view of the abdomen. FINDINGS: The bowel gas pattern is normal with no evidence of ileus or obstruction. No abnormal soft tissue calcifications are noted. No organomegaly. Clear lung bases. The osseous structures appear normal. XR/XR KUB IMPRESSION: No acute findings of the abdomen. No significant constipation. Electronically signed by: Harsh Oh MD 10/13/2024 04:06 PM EDT
[2024-10-13 14:57] VITALS: BP 140/77; PULSE 95; RESP 19; TEMP 36.6; O2SAT 99; BMI 33.5
--- NOTE | 2024-10-13 14:59 | ED_ITS ---
HPI - General Adult General Chief complaint: General Medical Stated complaint: Stomach and Back Pain Time Seen by Provider: 10/13/24 21:35 Source: patient Mode of arrival: ambulatory Limitations: no limitations History of Present Illness ED Provider: Dr. Iman Jolly HPI narrative: patient comes to the emergency room complaining of couple of days of lower back pain radiating towards both legs. Patient states that the pain is constant but if she moves a certain way, it feels like a shock-like sensation traveling down to her buttocks. Patient denies any urinary/fecal incontinence / retention. Patient denies any recent trauma. Patient Denies heavy lifting or any known injuries. patient denies hematuria or dysuria, denies flank pain, denies any fever or chills. Denies drug use also, patient states that she is known to have herpes outbreaks. Patient states that her antiviral medications are no longer working Related Data Previous Rx's ?Medication ?Instructions ?Recorded benzonatate 100 mg capsule 100 mg PO TID PRN cough #30 caps 08/03/21 fluticasone propionate 50 1 spray intranasal Q12H #16 grams 08/03/21 mcg/actuation nasal spray,suspension (Flonase Allergy Relief) prednisone 20 mg tablet 40 mg (2 x 20 mg) PO DAILY #10 tabs 08/03/21 dicyclomine 20 mg tablet 20 mg PO TID PRN Abdominal 07/21/24 Discomfort #20 tabs ondansetron 4 mg disintegrating 4 mg PO Q6-8H PRN nausea and 07/21/24 tablet vomiting #7 tabs cyclobenzaprine 10 mg tablet 10 mg PO TID PRN muscle spasm #10 10/13/24 tabs Allergies Allergy/AdvReac Type Severity Reaction Status Date / Time acetaminophen [Vicodin] Allergy Unknown hives Verified 10/13/24 15:00 hydrocodone [From VICODIN] Allergy Unknown HIVES, SOB Verified 10/13/24 15:00 ibuprofen [From MOTRIN] Allergy Unknown HIVES, SOB Verified 10/13/24 15:00 naproxen [NAPROXEN] Allergy Unknown HIVES, SOB Verified 10/13/24 15:00 Penicillins [PENICILLINS] Allergy Unknown HIVES Verified 10/13/24 15:00 Sulfa (Sulfonamide Allergy Unknown HIVES, SOB Verified 10/13/24 15:00 Antibiotics) [SULFA (SULFONAMIDE ANTIBIOTICS)] sumatriptan [From IMITREX] Allergy Unknown HIVES, SOB Verified 10/13/24 15:00 ketamine Allergy Hives Verified 10/13/24 15:00 penicillin AdvReac Unknown hives Uncoded 10/13/24 15:00 sulfa AdvReac Unknown hives Uncoded 10/13/24 15:00 Review of Systems 2 Review of Systems: Constitutional : No Weight loss, No Fever, No Chills, No Night Sweats, No Fatigue, No Malaise ENT/Mouth : No Hearing loss, No Ear Pain, No Nasal Congestion, No Sinus Pain, No Hoarseness, No sore throat, No Rhinorrhea, No Swallowing Difficulty Eyes: No Eye Pain, No Swelling, No Redness, No Foreign Body, No Discharge, No Vision Changes Cardiovascular : No Chest Pain, No SOB, No Dyspnea on Exertion, No Orthopnea, No Edema, No Palpitations Respiratory : No Cough, No Sputum, No Wheezing, No Smoke Exposure, No Dyspnea Gastrointestinal : No Nausea, No Vomiting, No Diarrhea, No Constipation, No abdominal Pain, No Hematochezia, No Melena Genitourinary : complaining of a herpes simplex virus outbreak, No Dysuria, No Urinary Frequency, No Hematuria, No Urinary Incontinence, No Urgency, No Flank Pain, No Urinary Flow Changes, No Hesitancy Musculoskeletal : complaining of lower back pain that gets worse with certain movements, shock-like sensation radiating towards the buttocks with certain movements. No Myalgias, No Joint Swelling Skin : No Skin Lesions, No rash Neuro : No Weakness, No Numbness, No Paresthesias, No Loss of Consciousness, No Dizziness, No Headache Psych : No Anxiety/Panic, No Depression, No SI/HI/AH/VH, No Social Issues, Heme/Lymph: No Bruising, No Bleeding,No Lymphadenopathy Endocrine : No Polyuria, No Polydipsia, No Temperature Intolerance PMFSH Social History Social History Advance Directives: No Advance Directives Information Provided: Yes Do you have a plan to hurt others: No Plan Physical Exam ED Vital Signs: Vital Signs - 24 hr 10/13/24 14:57 10/13/24 20:57 Temperature 98 F 98.8 F Pulse Rate 95 81 Respiratory Rate 19 20 Blood Pressure 140/77 H 105/68 Pulse Oximetry 99 97 Oxygen Delivery Method Room Air Room Air BMI result Body Mass Index 33.5 Const Other: Appearance: Alert. Oriented X3. No acute distress. Eyes: Pupils equal, round and reactive to light. ENT: Pharynx normal. Neck: Normal inspection. Neck supple. No lymph nodes noted. No crepitus CVS: Normal heart rate and rhythm. Pulses normal. Normal S1 and S2 Respiratory: No respiratory distress. Breath sounds normal. No Wheezing. No rales Abdomen: Soft and nontender. No rigidity. No distention. Skin: Skin warm and dry. Normal skin color. Normal skin turgor. Back: No pain to palpation over the thoracic or lumbar spine, no flank pain. With hip flexion bilaterally, patient has pain in the lower back radiating towards the buttocks Extremities: No lower extremity edema. No Lacerations. No Rash Neuro: Oriented X 3. No motor deficit. No sensory deficit. Moving all extremities. No slurred speech. CN 2 through 12 grossly intact Psych: calm, cooperative, normal affect Course Course Course Narrative: RME, this is a rapid medical exam performed by Torres Araujo please refer to primary provider for complete H&P- 29 old female presents for evaluation of back pain that radiates into her lower abdomen as well as her buttocks. She also complains of lightheadedness and dizziness. Her symptoms started a few days ago and did not seem to be improving. Denies any chest pain. Medical Decision Making Medical Decision Making [facility] Narrative: my interpretation of labs: Patient's hematology chemistry LFTs within normal limits, urinalysis negative, hCG negative, KUB negative. I discussed the physical exam with the patient, patient likely has sciatica versus a bulging disc Versus musculoskeletal pain. Patient is allergic to NSAIDs. Patient was given a dose of IM morphine and cyclobenzaprine. Patient has family members who will pick her up I discussed with the patient that if she has not improvement within the next few days, she may need a referral to physical therapy Differential Diagnosis Differential Diagnoses: The differential diagnosis associated with the presentation includes ( as above) Lab Data [facility] Lab Attestation statement: I reviewed the patient's lab results. 10/13/24 15:27 10/13/24 15:27 Labs: Lab Results 10/13/24 Range/Units 15:27 WBC 5.1 (4.8-10.8) X10*3/uL RBC 3.79 L (4.20-5.50) X10*6/uL Hgb 11.9 L (12.0-16.0) g/dl Hct 35.0 L (37.0-47.0) % MCV 92.3 (80.0-98.0) fL MCH 31.4 (27.0-33.0) pg MCHC 34.0 (31.0-35.0) g/dl RDW 13.0 (11.0-16.0) % Plt Count 251 (160-400) X10*3/uL MPV 9.7 (9.4-12.3) fL Immature Gran % (Auto) 0.2 (0.0-0.4) % Neut % (Auto) 40.6 L (45-73) % Lymph % (Auto) 48.3 H (20-40) % [place] % (Auto) 7.7 (2-11) % Eos % (Auto) 2.6 (0-4) % Baso % (Auto) 0.6 (0-2) % Lymph # (Auto) 2.5 (1.2-4.9) X10*3/uL [place] # (Auto) 0.4 (0.1-1.2) X10*3/uL Eos # (Auto) 0.1 (0.0-0.4) X10*3/uL Baso # (Auto) 0.0 (0.0-0.2) X10*3/uL Abs Immat Gran (auto) 0.01 (0.00-0.03) X10*3/uL Absolute Neuts (auto) 2.1 (2.0-8.3) x10*3/uL Absolute Nucleated RBC 0.000 (0.0-0.012) X10*3/uL Nucleated RBC % (auto) 0.0 (0.0-0.2) /100WBC Sodium 140 (135-145) mmol/L Potassium 3.9 (3.3-5.1) mmol/L Chloride 108 (96-108) mmol/L Carbon Dioxide 26 (22-29) mmol/L Anion Gap 10 L (12-20) BUN 8 L (9-16) mg/dL Creatinine 0.68 (0.5-1.4) mg/dL Estim Creat Clear Calc 120.8 Estimated GFR > 60 Random Glucose 84 (60-115) mg/dL Calcium 9.2 (8.4-10.2) mg/dL Total Bilirubin 0.2 (0.0-1.0) mg/dL AST 21 (5-31) U/L ALT 14 (0-31) U/L Alkaline Phosphatase 59 (39-117) U/L Total Protein 7.5 (6.5-8.0) g/dL Albumin 4.0 (3.5-5.0) g/dL Lipase 32 (8-78) U/L Beta HCG, Quant < 2 mIU/mL Urine Color Yellow Urine Appearance Clear Urine pH 8.0 (5.0-9.0) Ur Specific [place] 1.020 (1.005-1.025) Urine Protein Negative (Neg-Trace) mg/dL Urine Glucose (UA) Negative (Negative) mg/dL Urine Ketones Negative (Negative) mg/dL Urine Blood Negative (Negative) Urine Nitrite Negative (Negative) Ur Leukocyte Esterase Negative (Negative) Urine RBC 0-2 (0-2) /HPF Urine WBC 0-5 (0-5) /HPF Ur Squamous Epith Cells 6-10 (0-2) /HPF Urine Bacteria None Seen (None Seen) Hyaline Casts 0-2 (0-2) /LPF Independent Interpretation I performed an independent interpretation of an: Plain X-Ray Radiology Impression Discussion of test interpretation with radiology: I have reviewed the radiologist's reading. Radiologist Impression: The bowel gas pattern is normal with no evidence of ileus or obstruction. No abnormal soft tissue calcifications are noted. No organomegaly. Clear lung bases. The osseous structures appear normal. XR/XR KUB IMPRESSION: No acute findings of the abdomen. No significant constipation. Discharge Plan Discharge Clinical Impression: Sciatica Patient Disposition: Home, Self-Care Instructions: Sciatica (ED), Lower Back Exercises (ED) Additional Instructions: Please follow-up with your primary care physician tomorrow. If you have any worsening or new symptoms, please return to the emergency room or call 911 Prescriptions: New cyclobenzaprine 10 mg tablet 10 mg PO TID PRN (Reason: muscle spasm) Qty: 10 0RF No Action benzonatate 100 mg capsule 100 mg PO TID PRN (Reason: cough) Qty: 30 0RF prednisone 20 mg tablet 40 mg PO DAILY Qty: 10 0RF fluticasone propionate [Flonase Allergy Relief] 50 mcg/actuation spray,suspension 1 spray intranasal Q12H Qty: 16 0RF Rx Instructions: administer into each nostril dicyclomine 20 mg tablet 20 mg PO TID PRN (Reason: Abdominal Discomfort) Qty: 20 0RF ondansetron 4 mg tablet,disintegrating 4 mg PO Q6-8H PRN (Reason: nausea and vomiting) Qty: 7 0RF Stand Alone Forms: Work/School Release Print Language: [place] Citizen
[2024-10-13 15:50] LABS: MANUAL DIFF FLAG NO
[2024-10-13 15:53] LABS: Appearance Urine Clear; Basophils Percent Auto 0.6 % (0-2); Color Urine Yellow; Eosinophils Absolute Auto 0.1 X10*3/uL (0.0-0.4); Eosinophils Percent Auto 2.6 % (0-4); Glucose Urine UA Negative (Negative); Hemoglobin 11.9 g/dl (12.0-16.0); Imm Gran Abs Auto 0.01 X10*3/uL (0.00-0.03); Imm Gran Pct Auto 0.2 % (0.0-0.4); Leukocyte Esterase Urine Negative (Negative); Lymphocytes Absolute Auto 2.5 X10*3/uL (1.2-4.9); Lymphocytes Percent Auto 48.3 % (20-40); Mean Corpuscular Hemoglobin 31.4 pg (27.0-33.0); Mean Corpuscular Volume 92.3 fL (80.0-98.0); Mean Platelet Volume 9.7 fL (9.4-12.3); Monocytes Absolute Auto 0.4 X10*3/uL (0.1-1.2); Monocytes Percent Auto 7.7 % (2-11); Neutrophils Absolute Auto 2.1 x10*3/uL (2.0-8.3); Neutrophils Percent Auto 40.6 % (45-73); Nitrite Urine Negative (Negative); Platelet Count 251 X10*3/uL (160-400); Red Blood Count 3.79 X10*6/uL (4.20-5.50); Urine Blood Negative (Negative); Urine Ketones Negative (Negative); Urine Protein Negative (Neg-Trace); White Blood Count 5.1 X10*3/uL (4.8-10.8)
[2024-10-13 15:59] LABS: Bacteria Urine None Seen (None Seen); Hyaline Casts Urine 0-2 /LPF (0-2); RBC Urine 0-2 /HPF (0-2); WBC Urine 0-5 /HPF (0-5)
[2024-10-13 16:17] LABS: Alanine Aminotransferase 14 U/L (0-31); Anion Gap 10 (12-20); Aspartate Amino Transferase 21 U/L (5-31); Bilirubin Total 0.2 mg/dL (0.0-1.0); Blood Urea Nitrogen 8 mg/dL (9-16); Calcium 9.2 mg/dL (8.4-10.2); Carbon Dioxide 26 mmol/L (22-29); Chloride 108 mmol/L (96-108); Creatinine Clr Calc Pharmacy 120.8; Estimated Glomerular Filt Rate > 60; Glucose Random 84 mg/dL (60-115); Lipase 32 U/L (8-78); Potassium 3.9 mmol/L (3.3-5.1); Sodium 140 mmol/L (135-145); Total Protein 7.5 g/dL (6.5-8.0)
[2024-10-13 16:20] LABS: HCG Quantitative < 2 mIU/mL
[2024-10-13 18:39] LABS: Alkaline Phosphatase 59 U/L (39-117)
--- OUTSIDE RECORDS SUMMARY | 2024-10-13 20:54 | XMS_ITS | Clinical Summary ---
Author Organization [facility] Address [address] [place] [address] Care Team Providers Care Boiler Inspector Name Role Phone Patient, Has No Pcp Or Ref Primary Care Provider Unavailable Allergies Active Allergy Reactions Criticality Noted Date Comments Hydrocodone-Acetamino phen Anaphylaxis,Hives High 05/29/2015 Ibuprofen Anaphylaxis,Hives High 05/29/2015 Ketamine Hives 07/30/2024 Naproxen Anaphylaxis,Hives High 05/29/2015 Oxycodone Nausea And Vomiting Low 01/01/2020 Tolerates hydomorphone Penicillins Anaphylaxis,Hives High 05/29/2015 Sulfa (Sulfonamide Antibiotics) Anaphylaxis High 01/01/2020 sulfa drugs Sumatriptan Anaphylaxis High 07/28/2015 Medications predniSONE (DELTASONE) 20 mg tablet 2 tablets by mouth for 5 days, then 1 tablet by mouth for 2 days, then half tablet by mouth for 2 days. 13 tablet 3 Active Additional Information Patient not taking.Reported on 11/20/2023 doxycycline hyclate (VIBRAMYCIN) 100 mg capsule Take 1 capsule (100 mg total) by mouth 2 times a day. 20 capsule 4 Active methylPREDNISol one (MEDROL DOSEPACK) 4 mg tablet follow package directions 6 tablet 4 Active fluconazole (DIFLUCAN) 150 mg tablet Take 1 tablet (150 mg total) by mouth once a day. Take 1 tablet (150 mg total) by mouth once a day. Please repeat in 72 hours if still symptomatic. 2 tablet 4 Active nitrofurantoin monohydrate/mac rocrystals (MACROBID) 100 mg capsule Take 1 capsule (100 mg total) by mouth 2 times a day. 10 capsule Active Active Problems Problem Noted Date Diagnosed Date Strep pharyngitis 11/20/2023 Encounters Date Type Department Care Team Description 07/30/2024 2:12 PM EST - 07/30/2024 5:07 PM EST Emergency [facility] [address] [place] [address] Lacie Oh MD Acute cystitis without hematuria (Primary Dx) Discharge Disposition: Home or Self Care (01) from Last 3 Months Social History Tobacco Use Types Packs/Day Years Used Date Smoking Tobacco: Never Smokeless Tobacco: Never Tobacco Cessation:Counseling Given: Not Answered Alcohol Use Standard Drinks/Week Comments Never 0 (1 standard drink = 0.6 oz pur e alcohol) Comments Unknown Sex and Gender Information Value Date Recorded Sex Assigned at Female 11/20/2023 1:25 PM EDT Legal Sex Female 6:43 PM EDT Gender Identity Female 11/21/2023 10:07 AM EDT Sexual Orientation Not on file Last Filed Vital Signs Vital Sign Reading Time Taken Comments Blood Pressure 95/64 07/30/2024 1:03 PM EST Pulse 99 07/30/2024 1:03 PM EST Temperature 37 ??C (98.6 ??F) 07/30/2024 1:03 PM EST Respiratory Rate 18 07/30/2024 1:03 PM EST Oxygen Saturation 98% 07/30/2024 1:03 PM EST Inhaled Oxygen Concentration - - Weight 80.3 kg (177 lb) 07/30/2024 1:03 PM EST Height 157.5 cm (5' 2 ) 07/30/2024 1:03 PM EST Body Mass Index 32.37 07/30/2024 1:03 PM EST Plan of Treatment Health Maintenance Due Date Last Done Comments Cervical Cancer Screening 1994 HIV Screening 1994 HPV and Pap Smear 1994 Hepatitis C Screening 1994 Pap Smear 1994 Varicella Vaccines (1 of 2 - 13+ 2-dose series) 2007 Hepatitis B Vaccines (1 of 3 - 19+ 3-dose series) 2013 COVID-19 Vaccine (2023-2 5 season) 2024 10/15/2021, 05/03/2021, 04/10/2021 Influenza Vaccine (#1) 2024 2, 05/29/2020, 05/26/2019 Alcohol/Substance Use Screening 08/04/2024 Depression Screening and Follow-Up 08/04/2024 Social Drivers of Health Annual Screening 08/04/2024 Chlamydia Screening 01/13/2025 01/14/2024, 04/15/2023, 01/28/2017 DTaP,Tdap,and Td Vaccines (2 - Td or Tdap) 05/10/2030 05/10/2020 RSV Vaccine (60+ years old and patients) (1 - 1-dose 75+ series) 2069 Pneumococcal Vaccine: Pediatric (0-5 Years) and At-Risk Patients (6-50 Years) Aged Out No longer eligible based on patient's age to complete this topic Procedures * Due to [facility] law, this organization might not be sharing negative HIV tests. Procedure Name Priority Date/Time Associated Diagnosis Comments SYPHILIS ANTIBODY W/REFLEX TO RPR (DIAGNOSIS) TITER & CONFIRMATION Routine 07/30/2024 3:42 PM EST HCG QUALITATIVE, URINE STAT Add-on 07/30/2024 2:35 PM EST MICROSCOPIC URINALYSIS ONLY Routine 07/30/2024 2:35 PM EST UA/CULTURE REFLEX Routine 07/30/2024 2:3 5 PM EST URINALYSIS W/REFLEX TO MICROSCOPIC & CULTURE Routine 07/30/2024 2:35 PM EST URINE CULTURE, ROUTINE Routine 07/30/2024 2:35 PM EST CHLAMYDIA/NEISSERIA GONORRHEA RNA STAT 01/14/2024 3:20 PM EDT from Last 3 Months or Most Recently Relevant to Health Maintenance Results * Due to [place] [employer] law, this organization might not be sharing negative HIV tests. * Syphilis Antibody w/Reflex to RPR (Diagnosis) Titer & Confirmation (07/30/2024 3:42 PM EST) Treponema Pallidum Antibodies Interp Negative Negative 07/30/2024 5:20 PM EST [facility] Blood Structure of peripheral vein / Unknown Venipuncture / Unknown 07/30/2024 3:42 PM EST 07/30/2024 4:15 PM EST Lacie Oh MD LAB BLOOD ORDERABLES Final Res ult Performing Organization Address City/[facility]/ZIP Co de Phone Number [facility] [address] [address], [place] [phone] * (ABNORMAL) Microscopic Urinalysis Only (07/30/2024 2:35 PM EST) Pathologist [facility] RBC, Urine 30-40(A) None Seen, 0-2 /HPF 07/30/2024 3:15 PM EST [facility] WBC, Urine 30-40(A) None Seen, 0-2 /HPF 07/30/2024 3:15 PM EST [facility] Squamous Epithelial Cells, Urine 3-5 /HPF 07/30/2024 3:15 PM EST [facility] Bacteria, Urine Small(A) None Seen /HPF 07/30/2024 3:15 PM EST [facility] Urine Urine specimen collection, clean catch / Unknown Non-Blood Collection / Unknown 07/30/2024 2:35 PM EST 07/30/2024 2:51 PM EST Pradeep Morataya MD LAB URINE ORDERABLES Shannon l Result Performing Organization Address City/[facility]/ZIP Co de Phone Number [facility] [address] [address], [place] [phone] * (ABNORMAL) Urinalysis W/Reflex to Microscopic & Culture (07/30/2024 2:35 PM EST) Color, Urine Yellow Yellow 07/30/2024 2:51 PM EST [facility] Clarity, Urine Clear Clear 07/30/2024 2:51 PM EST [facility] Specific [place], Urine 1.020 1.005 - 1.030 07/30/2024 2:51 PM EST [facility] pH, Urine 6.5 5.0 - 8.0 07/30/2024 2:51 PM EST [facility] Protein, Urine Negative Negative mg/dL 07/30/2024 2:51 PM EST [facility] Glucose, Urine Negative Negative mg/dL 07/30/2024 2:51 PM EST [facility] Ketones, Urine Trace(A) Negative mg/dL 07/30/2024 2:51 PM EST [facility] Bilirubin, Urine Negative Negative 07/30/2024 2:51 PM EST [facility] Blood, Urine Large(A) Negative 07/30/2024 2:51 PM EST [facility] Nitrite, Urine Negative Negative 07/30/2024 2:51 PM EST [facility] Urobilinogen, Urine 0.2 0.2 - 1.0 E.U./dL 07/30/2024 2:51 PM EST [facility] Leukocyte Esterase, Urine Large(A) Negative 07/30/2024 2:51 PM EST [facility] Urine Urine specimen collection, clean catch / Unknown Non-Blood Collection / Unknown 07/30/2024 2:35 PM EST 07/30/2024 2:43 PM EST Pradeep Morataya MD LAB URINE ORDERABLES Shannon mendoza Result [facility] [address] [place] [address] [address] [place] [address], * HCG Qualitative, Urine (07/30/2024 2:35 PM EST) HCG Qualitative, Urine Negative 07/30/2024 3:14 PM EST [facility] Comment: hCG may be negative in early . ??Suggest repeat testing in 2-4 days if clinically indicated. ??The results of this test should be interpreted with the patient's clinical presentation. Urine Urine specimen collection, clean catch / Unknown Non-Blood Collection / Unknown 07/30/2024 2:35 PM EST 07/30/2024 2:43 PM EST us Lacie Oh MD LAB URINE ORDERABLES Final Res ult Performing Organization Address [facility] Co de Phone Number [address] [address], * Urine Culture, Routine (07/30/2024 2:35 PM EST) Urine Culture >100,000 CFU/mL mixed gram positives; multiple organisms are present, suggestive of contamination at the time of collection. [place] [facility] 08/01/2024 8:45 AM EST [facility] Urine Urine specimen collection, clean catch / Unknown Non-Blood Collection / Unknown 07/30/2024 2:35 PM EST 07/30/2024 2:51 PM EST Pradeep Morataya MD LAB MICROBIOLOGY - GENERA L ORDERABLES Final Result Performing Organization Address [facility] de Phone Number [address] [address], [place] [phone] * Chlamydia/Neisseria gonorrhoeae RNA (01/14/2024 3:20 PM EDT) Pathologist [facility] Chlamydia trachomatis RNA, TMA NOT DETECTED NOT DETECTED 01/15/2024 8:34 PM EDT [facility] Neisseria Gonorrhoeae RNA, TMA NOT DETECTED NOT DETECTED 01/15/2024 8:34 PM EDT [facility] Comment: The analytical performance characteristics of this assay, when used to test SurePath(TM) specimens have been determined by [employer]. The modifications have not been cleared or approved by the FDA. This assay has been validated pursuant to the CLIA regulations and is used for clinical purposes. For additional information, please refer to https://education.[employer]/faq/AFP088 (This link is being provided for information/ educational purposes only.) Urine Voided urine specimen / Unknown Non-Blood Collection / Unknown 01/14/2024 3:20 PM EDT 01/14/2024 3:20 PM EDT Narrative FRANKO SINGH - 01/15/2024 8:34 PM EDT [facility] Received Date:[id number] us Mariela KESSLER LAB URINE ORDERABLES Final Re sult FRANKO SINGH [address] [place] [address] [address] [place], [place] [address], [place] [phone] from Last 3 Months or Most Recently Relevant to Health Maintenance Care Teams Boiler Inspector Relationship Specialty Start Date End Date Patient, Has No Pcp Or Ref DO NOT EDIT THIS RECORD VIA PROVIDER ON THE FLY PCP - General Painter Set 07/21/23
--- OUTSIDE RECORDS SUMMARY | 2024-10-13 20:54 | XMS_ITS | Data Portability ---
Author Organization LETICIA Isidoro Carty [facility], [facility] Address [address] [place] [address] Assessment Encounter Date Assessment Date Assessment LastModified by Organization Details LastModified Time 11/05/2023 11/05/2023 I am seeing the patient today under the supervision of Dr. Adame who was available but did not see the patient. HPI: Patient is a pleasant 28-year-old nazvo-jbzf-ctycfbv t female presents to clinic today for evaluation. She has been diagnosis bilateral carpal tunnel syndrome and has been undergoing cortisone shots for the last few months. Her previous shot was back in August. It only lasted about a month and a half. Denies any fall trauma. She is not interested in surgery at this point due to the fact that she is a [employer] she does not have the appropriate amount of time to take off. Past family, medical, social history and review of systems has been reviewed, updated and signed by me and is located in the patient's chart. Examination: Examination: The patient is well appearing and in no apparent distress. Alert and oriented x3. Gait is symmetric. vital signs per nursing intake sheet. Bilateral wrist exam: Skin is intact without evidence of erythema edema or ecchymosis noted there is evidence of hypopigmentation noted bilaterally about the volar wrists is very minimal with no evidence or dimpling noted.. No evidence of thenar, hypothenar, or interosseous wasting noted. Generally nontender to palpation. Flexors and extensors intact. Intrinsics and extrinsic is intact. EPL, EBP, APL intact. Neurovascular intact distally. Positive Phalen's testing to the bilaterally. Positive Tinel's to the carpal tunnel. 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 45 in thumb opposition, finger abduction, and adduction. Capillary refills less than 3 seconds. negative Ana maneuver. Negative Wartenberg sign. Negative CMC grind testing/CMC compression testing Peripheral, vascular, lymphatic examination, skin, neurological, coordination, reflexes, sensation are within normal limits. . X-rays ordered, obtained and reviewed at [facility]: None performed today. Impression: Bilateral carpal tunnel syndrome treated with cortisone injections that is limitedly relief with evidence of dermatological manifestations of cortisone Plan: I discussed my findings with the patient today. We discussed potential treatment options at this time. We had a long and lengthy discussion about injections today. I'm wary of the amount of more injections that the patient can receive due to the change in her skin. We also discussed the extensive neurological issues associated with effects of cortisone. We discussed the recovery time of a carpal tunnel surgery. Patient is still adamant about getting shots today. She understands the risks and benefits. She will follow-up in 2 weeks if it does not help. See procedure note. kendell Not available 11/05/2023 14:37:03 Plan of Treatment Reminders Order Date Submit Date Provider Last Modified By Organization Details Last Modified Time Details Appointments None record ed. Lab None record ed. Referral None record ed. Procedures None record ed. Surgeries None record ed. Imaging None record ed. Medication Orders None record ed. Patient TargetsNo targets recorded. Patient InstructionsNo instructions recorded. Reason for Referral None Reported. Results Created Date Observation Date Name Description Value Unit Range Abnormal Flag Note LastModifiedBy Organization Detail LastModifiedTime 04/03/20 24 11/05/2021 shajii ng/maribel parekh tic resul t No observ ation record ed. [email or web address] Not Available 03/06 03:34:37 Result Notes None recorded. Procedures Surgical History Date Name Laterality Status Provider Name and Address Organization Details Recorded Time 4 [facility] completed Zayra Murphy PA-C [address] [facility] [address], [place], [address], [facility] 11/05/2023 14:38:08 Imaging Results Imaging Date Name Status LastModified by Organiz ation Details LastModified Time 11/05/2021 imaging/diag nostic result completed [email or web address] Information not available 04/03/2024 03:34:37 Procedure Notes None recorded. Medical Equipment None Reported. Allergies Allergen ID Allergen Name Allergen Category Reaction Reaction Severity Criticality Documentation Date Start Date Code Code System Note Provider Name and Address Organization Details Recorded Time 466587 Product containin g penicilli n (product) medicatio n Not available Not available Not available 10/06/20232013 41239 8001 SNOMED Aller gyRea ction : 'Skin React ion'; Not Available [facility] 4 16:12:53 750471 Substance with sulfonami de structure and antibacte rial mechanism of action (substanc e) medicatio n Not available Not available Not available 10/06/20232013 34880 8003 SNOMED Aller gyRea ction : 'Skin React ion'; Not Available [facility] 4 16:12:53 Medications Name Sig Start Date Stop Date Status Note LastModified by Organization Details LastModified Time doxycycline hyclate 100 mg capsule TAKE 1 CAPSULE BY MOUTH TWICE A DAY active Not Available Not Available No t Available cetirizine 10 mg tablet TAKE 1 TABLET BY MOUTH DAILY TO CONTROL ALLERGIES active Not Available Not Available No t Available azithromycin 250 mg tablet TAKE 2 TABLETS BY MOUTH TODAY, THEN TAKE 1 TABLET DAILY FOR 4 DAYS DIRECTED active Not Available Not Available No t Available Lidocaine Viscous 2 % mucosal solution TAKE 5 ML (MUCOUS MEMBRANE) 3 TIMES PER DAY (PAIN) active Not Available Not Available N ot Available fluconazole 150 mg tablet TAKE 1 TABLET (150 MG TOTAL) BY MOUTH ONCE FOR 1 DOSE. active Not Available Not Available No t Available valacyclovir 1 gram tablet TAKE 1 TABLET BY MOUTH TWICE A DAY FOR 7 DAYS active Not Available Not Available No t Available prednisone 20 mg tablet TAKE 2 TABS X 5 DAYS,1 TAB X 2 DAYS,THEN 1/2 TAB X 2 DAYS active Not Available Not Available No t Available metronidazol e 500 mg tablet TAKE 1 TABLET BY MOUTH TWICE A DAY UNTIL FINISHED active Not Available Not Available No t Available methylpredni solone 4 mg tablets in a dose pack TAKE 6 TABLETS ON DAY 1 DIRECTED ON PACKAGE AND DECREASE BY 1 TAB EACH DAY FOR A TOTAL OF 6 DAYS active Not Available Not Available No t Available fluticasone propionate 50 mcg/actuatio n nasal spray,suspen joanna ADMINISTER 1 SPRAY INTRANASALL Y TWICE A DAY USE DAILY TO CONTROL ALLERGIES/N JOHANA CONGESTION active Not Available Not Available N ot Available M- Plus 27 mg iron-1 mg tablet active Not Available Not Available No t Available Nurtec ODT 75 mg disintegrati ng tablet TAKE 1 TABLET BY MOUTH EVERY DAY NEEDED FOR MIGRAINE active Not Available Not Available No t Available Wegovy 0.25 mg/0.5 mL subcutaneous pen injector active Not Available Not Available Not Available Wegovy 0.5 mg/0.5 mL subcutaneous pen injector active Not Available Not Available Not Available Vitals Date Recorded Body height Body temperature Provider N elham and Address Organization Details Last Updated DateTime 11/05/2023 157.48 cm 98.6 [degF] Court [place] [facility] 11/05/2023 14:27:19 Social History None recorded. Functional Status None recorded. Mental Status None recorded. Family History Nothing Reported. Medical History No medical history recorded. Gynecological HistoryNo gynecological history recorded. Obstetrics History GPAL:G 0 P 0 0 0 0 Past Encounters Encounter ID Performer Location Encounter Start Date Encounter Closed Date Diagnosis/Indication Diagnosis SNOMED-CT Code Diagnosis ICD10 Code Diagnosis Note [id number] [facility] [address] [place] [address] 11/05/2023 14:07:28 11/25/2023 12:10:04 Bilateral carpal tunnel syndrome [id number] [id number] G56.03 Health Concerns Section Related Observation LastModified by Organization Detai ls LastModified Time None Recorded Concern Status LastModified by Organization Details LastModified Time None Recorded Advance Directives Directive None Recorded Payers Encounter Date Sequence Insurance Name Policy Number Policy Gao Covered Member ID Gao Member ID Guarantor Name 11/05/2023 1 [facility] (MEDICAID HMO) [id number] David Bell [id number] David Bell OBGyn Episode No OBEpisode recorded.
--- OUTSIDE RECORDS SUMMARY | 2024-10-13 20:54 | XMS_ITS | Continuity of Care Document ---
Author Organization [facility] Address [address] [place] [address] Phone Care Team Providers Care Commercial Housekeeper Name Role Phone Generic Provider, [facility] Unavailable Unavailabl e Allergies, Adverse Reactions, Alerts [...] Diagnoses Date Provider Providers Copied on Encounter [facility], [address] [place] [address], [id number], [place] tel:[phone] [facility] Pediatrics No Information 2 0-201 8 Generic Provider [facility]. . [facility], [address] [place] [address], [id number], [place] tel:[phone] [facility] Adolescent Health No Information Nov-0 6-201 7 No Information OFFICE/OUTPA TIENT VISIT, [facility], [address] [place] [address], [address], [place] tel:[phone] [facility] Adolescent Health STI (chief complaint)Obe sity (chief complaint) Encounter for test, result negativeObesi tyEncounter for contraceptive managementEnc ounter for immunizationV aginal dischargeEnco unter for STD screening Apr-0 3-201 7 No Information OFFICE/OUTPA TIENT VISIT, [facility], [address] [place] [address], [facility], [place] tel:[phone] [facility] Adolescent Health f/u (chief complaint)bc + vaginal discharge (chief complaint) Acute vaginitisImmu nization dueObesity, unspecified Jovanny-0 9-201 6 Lidia Young. [address] [place] [address], [id number] [address] [place] [address], [id number], [place]. tel:[phone] OFFICE/OUTPA TIENT VISIT, [facility], [address] [place] [address], [address], [place] tel:[phone] [facility] Adolescent Health PCOS follow up (chief complaint)ins omnia (chief complaint) Encounter for contraceptive managementIns omnia 6 No Information OFFICE/OUTPA TIENT VISIT, [facility], [address] [place] [address], [address], [place] tel:[phone] [facility] Adolescent Health lab review (chief complaint) Painful micturition, unspecifiedOb esity, unspecifiedHe adacheVitamin D deficiencyAne grayson, iron deficiency, inadequate dietary intakePrediab etesPolycysti c ovaries 6 Lidia Young. [address] [facility], [id number] [address] [place] [address], [address], [place]. tel:[phone] OFFICE/OUTPA TIENT VISIT, [facility], [address] [place] [address], [address], [place] tel:[phone] [facility] Adolescent Health irregular menses (chief complaint) Encounter for test, result negativeEncou nter for immunizationO besityIrregul ar mensesEncount er for STD screening 6 No Information OFFICE/OUTPA TIENT VISIT, [facility], [address] [place] [address], [address], [place] tel:[phone] [facility] Adolescent Health Headache (chief complaint)Vag inal discharge (chief complaint) HeadacheVagin al discharge 5 No Information OFFICE/OUTPA TIENT VISIT, [facility], [address] [place] [address], [address], [place] tel:[phone] [facility] Adolescent Health lab review (chief complaint) Need for prophylactic vaccination and inoculation against varicellaENCO UNTERS FOR UNSPECIFIED ADMINISTRATIV E PURPOSEPREGNA NCY TEST - NEGATIVE RESULTEXAM EARS & HEARING NEC 5 No Information OFFICE/OUTPA TIENT VISIT, [facility], [address] [place] [address], [address], [place] tel:[phone] [facility] Adolescent Health Musculoskelet al pain (chief complaint)TB screen (chief complaint) Screening examination for pulmonary tuberculosisI nfluenza VaccineNeed for prophylactic vaccination and inoculation against viral hepatitisParo nychiaSpecial screening for other specified conditions 5 No Information OFFICE/OUTPA TIENT VISIT, [facility], [address] [place] [address], [facility], tel:[phone] [facility] Adolescent Health Vaginal discharge (chief complaint) Leukorrhea, not specified as infectiveScre ening examination for venereal diseaseCONTRA CEPTION, OTHER (DIAPHRAGM, ETC.)Irregula r mensesPREGNAN CY TEST - NEGATIVE RESULTNausea No Information OFFICE/OUTPA TIENT VISIT, [facility], [address] [place] [address], [facility], [place] tel:[phone] [facility] Adolescent [facility] Headache (chief complaint)All ergies (chief complaint) HeadacheSeaso nal allergic rhinitis No Information OFFICE/OUTPA TIENT VISIT, [facility], [address] [place] [address], [facility], tel:[phone] [facility] Adolescent Health F/U (chief complaint) MyopiaCounsel ing on sexually transmitted diseasesVagin itisDysuriaRo utine Medical ExamPregnancy examination or test, unconfirmedUn specified vitamin d deficiencyHea dacheUrinary hesitancy Lidia Young. [address] [place] [address], [id number] [address] [place] [address], [facility], [place]. tel:[phone] OFFICE/OUTPA TIENT VISIT, [facility] acute hospital, [address] [place] [address], [facility], tel:[phone] [facility] Adolescent Health Establish PCP (chief complaint) ObesityPREGNA [...] constitution party ID Authoriza tion(s) SPENCER Caro [id number] LUZN Jesus D [id number] LUZN Jesus D [id number] LUZN Jesus D [id number] LUZN Jesus D [id number] LUZN Jesus D [id number] SPENCER Lee D [id number] Social History Type Description Quantity Date Captured [...] Vicodin, naproxen, Imitrex, Motrin. 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 Denies smoking and drug abuse. Sleeps 8 hours/night. Eats breakfast daily PCOS follow up insomnia The patient pres [...] dysuria. No vaginal D/C. 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 Denies smoking and drug abuse. Hx of [...] include hirsutism. 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 Reports being told she has PCOS but it was recommended thats she have labs drawn at PCP as well. Headache Onset: 2 Years. Pain scale: 0/10. Locations affected include entire head. Associated symptoms include nausea, photophobia and visual aura. Pertinent negatives include fever or vomiting. Additional information: Went to [facility] ED 05-30-15 for headache. Was on firocet [...] TB screen Needs forms comp leted for [facility]. Forms require physical and TB screen. Vaginal [...] for 5 years. Last episode yesterday. 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 Denies smoking and drug abuse. LMP-10/20/14. Has [...] GC/ CT defered as do ne at [facility]. HIV/ RPR screen as ordered. Related to Encounter for STD screening Follow up after 10-23 for Hep A # 2. Related to Encounter for immunization Stressed need for we ight loss. . Recommended 30 minutes of physical activity daily, 3 healthy meals and 2 snacks, adequate servings of fruits, vegetables, low fat dairy and lean meats. Labs as ordered. Referral to [facility] kier pleater. Related to Obesity Further plan pending vaginitis [...] ADMINISTRATIVE PURPOSE Given varicella # 1 by DIRECTOR OF COMMUNITY CENTER today. Follow up for varicella # 2 [...] Special screening for other specified conditions Given flu vaccine by [facility] OF COMM[facility]ITY C[facility]. Relate d to Influenza Vaccine TB screen ordered as required by employer. Related to Screening examination for pulmonary tuberculosis Given Hep A # 1 by Frankie [...] week. Related to CONTRACEPTION, OTHER (DIAPHRAGM, ETC.) r/o STDs as cause fo r symptoms. STD prevention strategies : abstinence, mutual monogamy with an uninfected partner, use of condoms, and limiting the number of sex partners. Related to Screening examination for venereal disease Further plan pending vaginitis probe results. Related to Leukorrhea, not specified as infective Headache diary as pr ovided. To purchase [...] in any other form of contraceptives at si time. Discussed waiting 2-3 more weeks for menses. If no menses return to the office to discuss provera use. Related to Irregular menses GC/ CT screen deferr ed until PAP which will be scheduled after 20st birthday. STD prevention strategies : abstinence, mutual monogamy with an uninfected partner, use of condoms, and limiting the number of sex partners. Related to Screening examination for venereal disease Not interested any h ormonal contraceptives at this time. Stressed need for consistent condom use to prevent . Educated on Plan B when and if ever needed. Related to TEST - NEGATIVE RESULT Has lost weight over the past several [...]
--- OUTSIDE RECORDS SUMMARY | 2024-10-13 20:54 | XMS_ITS | Data Portability ---
Author Organization [place] - [facility], [facility] Address [id number] [place] [address] Assessment No assessment recorded. Plan of Treatment Reminders Order Date Submit Date Provider Last Modified By Organization Details Last Modified Time Details Appointments None recorde d. Lab pan wet prep 2015 016 [email or web address] In-Office Order, Internal Use Only DO Not Attach Compendium DO Not Attach Compendium, Do Not Delete/merge, [id number] 6 10:54:15 ph, vaginal fluid 2015 016 [email or web address] In-Office Order, Internal Use Only DO Not Attach Compendium DO Not Attach Compendium, Do Not Delete/merge, [id number] 6 10:54:15 urinaly sis, dipstic k 2015 016 [email or web address] In-Office Order, Internal Use Only DO Not Attach Compendium DO Not Attach Compendium, Do Not Delete/merge, [id number] 6 11:42:35 pap, LB + HPV 2015 016 [email or web address] Not available 6 10:32:58 pregnan cy test, urine 2015 016 [email or web address] In-Office Order, Internal Use Only DO Not Attach Compendium DO Not Attach Compendium, Do Not Delete/merge, [id number] 6 11:36:51 Referral None recorde d. Procedures None recorde d. Surgeries None recorde d. Imaging U/S breast right 2015 016 [email or web address] [facility] [address] [place], [address], 6 13:19:31 Medication Orders flucona zole 150 mg tablet 2015 016 [email or web address] Not available 6 11:45:53 Patient TargetsNo targets recorded. Patient Instructions Encounter Date Encounter Id Patient Instructions Last Modified By Organization Details Last Modified Time 08/10/2015 [id number] breast pain: care instructions [email or web address] Not available 08/14/2015 14:49:17 F/U at annual. Unable to do today with her list of problems and pt arriving late. [email or web address] Not available 08/10/2015 11:36:51 08/15/2015 [id number] polycystic ovary syndrome: care instructions [email or web address] Not available 08/28/2015 14:31:44 self breast exam education [email or web address] Not available 08/28/2015 14:31:44 Reason for Referral None Reported. Results Created Date Observation Date Name Description Value Unit Range Abnormal Flag Note LastModifiedBy Organization Detail LastModifiedTime 08/29/19 16 08/29/2015 ph, vagin al fluid Other 4 Not Available In-Office Order Internal Use Only DO Not Attach Compendium DO Not Attach Compendium, Do Not Delete/merge, [id number] 08/29/2015 10:19:27 08/29/19 16 08/29/2015 ph, vagin al fluid Amines negati ve Not Available In-Office Order Internal Use Only DO Not Attach Compendium DO Not Attach Compendium, Do Not Delete/merge, [id number] 08/29/2015 10:19:27 08/29/19 16 08/29/2015 pan wet prep Hyphae Absent Not Available In-Office Order Internal Use Only DO Not Attach Compendium DO Not Attach Compendium, Do Not Delete/merge, [id number] 08/29/2015 10:19:27 08/29/19 16 08/29/2015 pan wet prep Clue Cells Absent Not Available In-Offi ce Order Internal Use Only DO Not Attach Compendium DO Not Attach Compendium, Do Not Delete/merge, [id number] 08/29/2015 10:19:27 08/29/19 16 08/29/2015 pan wet prep Yeast Presen t Not Available In-Office Order Internal Use Only DO Not Attach Compendium DO Not Attach Compendium, Do Not Delete/merge, 08/29/2015 10:19:27 08/29/19 16 08/29/2015 pan wet prep Other spores and LB presen t Not Available In-Office Order Internal Use Only DO Not Attach Compendium DO Not Attach Compendium, Do Not Delete/merge, 08/29/2015 10:19:27 08/15/19 16 08/15/2015 urina lysis , dipst ick Leukocytes Negati ve Not Available In-Office Order Internal Use Only DO Not Attach Compendium DO Not Attach Compendium, Do Not Delete/merge, 08/15/2015 10:58:38 08/15/19 16 08/15/2015 urina lysis , dipst ick Nitrite negati ve Not Available In-Office Order Internal Use Only DO Not Attach Compendium DO Not Attach Compendium, Do Not Delete/merge, 08/15/2015 10:58:38 08/15/19 16 08/15/2015 urina lysis , dipst ick Urobilinogen Normal : 0.2 mg/dl Not Available In-Office Order Internal Use Only DO Not Attach Compendium DO Not Attach Compendium, Do Not Delete/merge, 08/15/2015 10:58:38 08/15/19 16 08/15/2015 urina lysis , dipst ick Protein Negati ve Not Available In-Office Order Internal Use Only DO Not Attach Compendium DO Not Attach Compendium, Do Not Delete/merge, 08/15/2015 10:58:38 08/15/19 16 08/15/2015 urina lysis , dipst ick pH 5.0 Not Available In-Office Order Internal Use Only DO Not Attach Compendium DO Not Attach Compendium, Do Not Delete/merge, 08/15/2015 10:58:38 08/15/19 16 08/15/2015 urina lysis , dipst ick Blood Modera te: +2 Not Available In-Office Order Internal Use Only DO Not Attach Compendium DO Not Attach Compendium, Do Not Delete/merge, 2016 10:58:38 08/15/19 16 08/15/2015 urina lysis , dipst ick Ketone Negati ve Not Available In-Office Order Internal Use Only DO Not Attach Compendium DO Not Attach Compendium, Do Not Delete/merge, 08/15/2015 10:58:38 08/15/19 16 08/15/2015 urina lysis , dipst ick Bilirubin Negati ve Not Available In-Office Order Internal Use Only DO Not Attach Compendium DO Not Attach Compendium, Do Not Delete/merge, 08/15/2015 10:58:38 08/15/19 16 08/15/2015 urina lysis , dipst ick Glucose Negati ve Not Available In-Office Order Internal Use Only DO Not Attach Compendium DO Not Attach Compendium, Do Not Delete/merge, 08/15/2015 10:58:38 08/15/19 16 08/15/2015 urina lysis , dipst ick Appearance Clear Not Available In-Offi ce Order Internal Use Only DO Not Attach Compendium DO Not Attach Compendium, Do Not Delete/merge, 08/15/2015 10:58:38 08/15/19 16 08/15/2015 urina lysis , dipst ick Color Yellow Not Available In-Office Order Internal Use Only DO Not Attach Compendium DO Not Attach Compendium, Do Not Delete/merge, 08/15/2015 10:58:38 08/10/19 16 08/10/2015 pregn ju test, urine Result negati ve Not Available In-Office Order Internal Use Only DO Not Attach Compendium DO Not Attach Compendium, Do Not Delete/merge, 08/10/2015 08:43:43 08/15/19 16 08/17/2015 pap, LB + HPV report abnormal GYNEC OLOGI CITLALY CYTOL OGY REPOR T THINP REP PAP TEST WITH HPV REFLE X AND GC/CH LAMYD IA SPECI MEN ADEQU ACY: SATIS FACTO RY FOR EVALU ATION ; ENDOC ERVIC AL/TR ANSFO RMATI ON ZONE COMPO NENT PRESE NT. INTER PRETA TION: AT YPICA L SQUAM O[place] [address] . Elect yvonne leggett Alessandra d Out: MD ESTEVAN BELTRÁN Y, [place]( CP) CLINI CITLALY INFOR LILY N: LMP: NI Sourc e CERVI X/END OCERV IX Numbe r of vials /slid es submi tted 1 Diagn osis / ICD CODE Z01.4 19 Abnor mal Pap Date NI Autom ated presc reeni ng of all liqui d based speci mens is perfo rmed by the ThinP rep Imagi ng bob [place]yle other [place]. The Pap test is a scree deniz test with an inher ent false negat tonya rate. Testi ng perfo rmed at [facility] , [address] [place] [address] CLIA [id number] CL-PO [id number]. Not Available [facility] [address] [place] [address], [address] 08/18/2015 12:09:36 08/15/19 16 08/18/2015 pap, LB + HPV HPV result Negati ve negati ve APTIM A HPV assay detec ts 14 high risk HPV types (HPV 16,18 ,31,3 3,35, 39,45 , 51,52 ,56,5 8,59, 66,68 ). The assay is FDA appro parth for testi ng ThinP rep liqui d Pap vials but not FDA appro parth for detec ting HPV in SureP ath liqui d Pap speci mens. In-ho use valid ation has shown the assay can detec t all HPV types from this sourc e. Not Available [facility] [address] [place], [address] 08/18/2015 12:09:36 08/15/19 16 08/16/2015 CT + NG DNA, PCR, unspe cifie d speci men source CERVIX /ENDOC ERVIX Not Available [facility] [address] [place], [address] 08/18/2015 12:09:36 08/15/19 16 08/16/2015 CT + NG DNA, PCR, unspe cifie d speci men chlamydia by DNA Negati ve negati ve Not Available [facility] [address] [place], [address] 08/18/2015 12:09:36 08/15/19 16 08/16/2015 CT + NG DNA, PCR, unspe cifie d speci men GC by DNA Negati ve negati ve Not FDA appro parth for GC/Ch lamyd ia in femal e urine speci mens. Test valid ated by CT for detec ting GC/Ch lamyd ia from this sourc e. Not Available [facility] [address] [place], [address] 08/18/2015 12:09:36 08/11/19 16 08/11/2015 ultra sound , pelvi c trans vagin al No observ ation record ed. cdinicu In-Office Order Internal Use Only DO Not Attach Compendium DO Not Attach Compendium, Do Not Delete/merge, [id number] 08/11/2015 14:55:07 Result Notes None recorded. Problems Name Problem SNOMED Code Status Onset Date Resolution Date Notes Provider Name and Address Organization Details Recorded Time Pain of breast 24097097 Active Verona Govea null, [facility] 6 10:13:57 Irregular periods 74664266 Active Shilaemmett Weberer null, [facility] 6 14:38:50 Polycystic ovaries Active CAMMIEATRI MARCH-CASH HARVEY, CNM [address] [facility], [address] [place] [address], [place], [address], [facility] 6 11:42:35 Candidal vulvovaginitis 24531492 Active CAMMIEARTI HINOJOSATA-CASH STA, CNM [address] [facility], [place], [address], [facility] 6 10:54:15 Problem Notes None recorded. Procedures Surgical History Date Name Laterality Status Provider Name and Address Organization Details Recorded Time 08/15/2015 [id number] completed EMELIA WADE, CNM [address] [facility], [address] [place] [address], [id number], [facility] 08/15/2015 11:39:26 08/15/2015 [id number] completed [facility]AGRESTA, CNM [address], [place], [place], [address] [place] [address], [facility] 08/15/2015 11:39:26 08/15/2015 [id number] completed [facility], CNM [address], [address] [place] [address], [place], [address] [place] [address], [facility] 08/15/2015 11:39:26 08/15/2015 [id number] completed [facility] CNM [address], [address] [place] [address], [place], [address] [place] [address], [facility] 08/15/2015 11:39:26 08/15/2015 [id number] completed [facility]RESTA, CNM [address], [address] [place] [address], [place], [address] [place] [address], [facility] 08/15/2015 11:39:26 08/15/2015 [id number] completed [facility]ASH[facility], CNM [address], [address] [place] [address], [place], [address] [place] [address], [facility] 08/15/2015 11:39:26 08/15/2015 Date of Last Pap Smear completed Cheryl Goldmahesh [facility] 08/29/2015 10:23:47 [facility] 11:03:51 Imaging Results Imaging Date Name Status LastModified by Organization Details LastModified Time 08/11/2015 ultrasound, pelvic transvaginal completed cdinicu In-Office Order Internal Use Only DO Not Attach Compendium DO Not Attach Compendium, Do Not Delete/merge, [id number] 08/11/2015 14:55:07 Procedure Notes None recorded. Medical Equipment None Reported. Allergies Allergen ID Allergen Name Allergen Category Reaction Reaction Severity Criticality Documentation Date Start Date Code Code System Note Provider Name and Address Organization Details Recorded Time 078215 sulfanila mide medicatio n hives Not available Not available 08/10/2015 97852 RxNorm Cheryl Romero null, [facility] 6 08:28:44 621218 naproxen medicatio n hives Not available Not available 08/10/2015 7258 RxNorm Cheryl Romero null, [facility] 6 08:28:44 060515 Motrin medicatio n hives Not available Not available 08/10/2015 98045 8 RxNorm Cheryl Romero null, [facility] 6 08:28:44 918183 acetamino phen / hydrocodo ne medicatio n hives Not available Not available 08/10/2015 49659 2 RxNorm Cheryl Romero null, [facility] 6 08:28:44 266745 penicilli n V Not available hives Not available Not available 08/10/2015 7984 RxNorm Cheryl Romero null, [facility] 6 08:28:44 860286 Imitrex medicatio n hives Not available Not available 08/15/2015 99682 3 HuanNojerilyn Romero null, [facility] 6 10:59:40 Medications Name Sig Start Date Stop Date Status Note LastModified by Organization Details LastModified Time medroxyprogester one 10 mg tablet active Not Available Not Avail able Not Available clindamycin HCl 300 mg capsule active Not Available Not Availab le Not Available trazodone 50 mg tablet active Not Available Not Available Not Available Lidocaine Viscous 2 % mucosal solution active Not Available Not Avail able Not Available fluconazole 150 mg tablet 1 tablet orally once active Not Available Not Available No t Available topiramate 25 mg tablet active Not Available Not Available Not Available metronidazole 500 mg tablet active Not Available Not Availabl e Not Available acetaminophen 300 mg-codeine 30 mg tablet active Not Available Not Available Not Available prochlorperazine maleate 10 mg tablet active Not Available Not Available Not Available ciprofloxacin 500 mg tablet active Not Available Not Availabl e Not Available tramadol 50 mg tablet active Not Available Not Available Not Available butalbital-aceta minophen-caffein e 50 mg-325 mg-40 mg tablet active Not Available Not Availa ble Not Available amitriptyline 25 mg tablet active Not Available Not Available No t Available baclofen 10 mg tablet active Not Available Not Available Not Available polymyxin B sulfate 10,000 unit-trimethopri m 1 mg/mL eye drops active Not Available Not Available Not Available ergocalciferol (vitamin D2) 1,250 mcg (50,000 unit) capsule active Not Available Not Available Not Available fluoxetine 20 mg capsule active Not Available Not Available Not Available fluticasone propionate 50 mcg/actuation nasal spray,suspension active Not Available Not Avail able Not Available nitrofurantoin monohydrate/macr ocrystals 100 mg capsule active Not Available Not Available Not Available hydrocodone 5 mg-acetaminophen 300 mg tablet active Not Available Not Availabl e Not Available Xulane 150 mcg-35 mcg/24 hr transdermal patch active Not Available Not Available Not Available Vitals Date Recorded Body height Body mass index (BMI) Body weight Systolic blood pressure Diastolic blood pressure Provider Name and Address Organization Details Last Updated DateTime 08/10/2015 157.48 cm 38.2 kg/m2 47269.80 533 g 110 mm[Hg] 78 mm[Hg] Cheryl Romero [facility] 6 08:36:33 Date Recorded Body height Body mass index (BMI) Body weight Systolic blood pressure Diastolic blood pressure Provider Name and Address Organization Details Last Updated DateTime 08/15/2015 157.48 cm 37.9 kg/m2 68146.62 059 g 110 mm[Hg] 68 mm[Hg] Cheryl Romero [facility] 6 10:57:25 Date Recorded Body height Body mass index (BMI) Body weight Systolic blood pressure Diastolic blood pressure Provider Name and Address Organization Details Last Updated DateTime 08/29/2015 157.48 cm 38 kg/m2 75224.21 296 g 114 mm[Hg] 64 mm[Hg] Cheryl Romero [facility] 6 10:21:05 Social History Question Answer Notes LastModified by Organizat ion Details LastModified Time Tobacco Smoking Status Never Smoker CherylMARVIN [facility] 08/10/2015 08:34:15 What Is Your Level Of Alcohol Consumption? Occasional Information not available 08/10/2015 Is Blood Transfusion Acceptable In An Emergency? Yes Information not available 08/10/2015 Do You Reside In Or Have You Traveled To An Area Where Ebola Virus Transmission Is Active? No Information not available 08/10/2015 Have There Been Any Changes To Your Family Or Social Situation? No Information no t available 08/10/2015 Drug Use? No Information no t available 08/10/2015 Do You Feel Safe At Home? Yes Information not available 08/10/2015 How Much Tobacco Do You Smoke? No Information not available 08/10/2015 Sex: Unknown Functional Status Question Answer Note LastModified by Organizat ion Details LastModified Time What is your exercise level? Occasional Information not available 08/10/2015 Mental Status Question Answer Note LastModified by Organization D etails LastModified Time Do you have difficulty concentrating, remembering or making decisions? No Information no t available 08/10/2015 Family History Relationship Description Onset Age of this Age Resolved Age Notes LastModified by Organization Details LastModified Time Father Traffic accident on public road [email or web address] Not available 02/2016 08:34:45 Mother Alive [email or web address] Not available 0 08/10/2015 08:34:45 Medical History No medical history recorded. Gynecological History Statement/Question Response Date of Last Pap Smear 08/15/2015 Age at Menarche 12 Obstetrics History GPAL:G 0 P 0 0 0 0 Past Encounters Encounter ID Performer Location Encounter Start Date Encounter Closed Date Diagnosis/Indication Diagnosis SNOMED-CT Code Diagnosis ICD10 Code Diagnosis Note [id number] EMELIA MOULTON, BERTHA SHE[address] [place] [address] 08/10/2015 08:16:38 08/10/2015 09:44:11 Pain of breast 66904586 N64.4 Advised normal breast exam but will get u/s to verify. Irregular periods 816592 07 N92.6 Will order u/s. has tried many different OCPs, patch, provera without any help. Discussed possibilit y of PCOS and weight loss would be helpful. Discussed cardio 30-40 minutes 3-4x/week and healthy eating habits. [id number] LARYPERRY KAPIL MOULTON, GENE SHE1 [address] [place] [address] 08/15/2015 10:44:51 08/15/2015 11:37:52 Gynecologic examination 11333026 Z01.419 Reviewed diet and exercise. No hereditary cancer risk. Has breast u/s scheduled this month (see previous visit) Polycystic ovaries 95454 008 E28.2 Reviewed u/s results from last week. Reviewed PCOS and implicatio ns. Need to have withdrawal bleed q 3 months so call for Provera if needed. Pt does not want OCP as she has tried numerous ones in past without relief and also had SE. Reviewed weight loss measures including PGX. [id number] CAMMIEARTI MOULTON, GENE SHE1 [address] [place] [address] 08/29/2015 10:14:29 08/29/2015 10:53:33 Candidal vulvovaginitis 10091347 B37.3 Phase contrast microscopi c evaluation reveals yeast. Will treat with Diflucan. Health Concerns Section Related Observation LastModified by Organization Detai ls LastModified Time None Recorded Concern Status LastModified by Organization Details LastModified Time None Recorded Advance Directives Directive None Recorded Payers Encounter Date Sequence Insurance Name Policy Number Policy Gao Covered Member ID Gao Member ID Guarantor Name 08/10/2015 1 [place] [facility] [id number] [facility] 08/15/2015 1 [place] [facility] [id number] [facility] 08/29/2015 1 [place] [facility] [id number] [facility] Notes Date Note Type Note Provider Name and Address Organization Details Recorded Time 08/10/2015 text/html [facility] Abnormal BleedingReported bypatient.Onset/Timing :since age 16, has had irregular menses. Skips 3-4 months then gets menses lasting 1 month or more. Quality:moderate; passing clots Severity:changing 7-8 pad/dayNotes:Has tried different OCPs, patch, progesterone. Does nto want depo provera due to weight gain.[facility] Breast ProblemsReported bypatient.Breast Symptombreast pain Location:right Onset/Timing:happens 1-2x/week lasting 10-15 minutes Quality:sharp Duration:intermittent Associated Symptoms:no fever; no skin redness; no breast swelling; no arm pain; no arm swelling; no chest painNotes:Drinks 0-1 cup of coffee/day. No soda. Pain does not occur cyclically. EMELIA WADE CNM [address] [facility], [address] [place] [address], [address] [place] [address] 08/10/2015 11:37:03 08/15/2015 text/html [facility] Annual GYNRe ported bypatient.Menstrual cycle:Bleeding lasts more than 7 days;Irregular cycle intervals; PCOS Urinary symptoms:No hematuria; No incontinence Vulva:No genital lesion Vagina:Normal vaginal discharge Breast:No breast pain; No breast lump; No nipple discharge Current Contraception:no control. would not be unhappy if got Sexual complaints:No sexual complaints; No pain during intercourse; Normal libido Psychological symptoms:No depression; No anxiety; No PMDD Preventive measures:Encourage self breast examination; Encourage regular exercise; Followed with yearly pap smears EMELIA WADE CNM [address] [place] [address], [address] [place] [address], [address] [place] [address] 08/15/2015 11:42:50 08/29/2015 text/html [facility] Vaginal DischargeReported bypatient.Location:vag evelyne Quality:white Severity:moderate Duration:started:; 1 days Onset/Timing:daily Associated Symptoms:vaginal itching EMELIA WADE CNM [address] [facility], [address] [place] [address], [place], [address] [place] [address] 08/29/2015 10:55:00 OBGyn Episode No OBEpisode recorded.
--- OUTSIDE RECORDS SUMMARY | 2024-10-13 20:54 | XMS_ITS | Encounter Summary ---
Author Organization [facility] Address [address] [place] [address] Care Team Providers Care Raw Stock Machine Feeder Name Role Phone Patient, Has No Pcp Or Ref Primary Care Provider Unavailable Reason for Visit * Reason Comments Results Pt continues to have symptoms. Will discuss with MD Encounter Details Date Type Department Care Team (Late st Contact Info) Description 01/16/2024 Telephone [facility] Emergency Department [address] [place] [id number] Liya Watkins RN Results (Pt continues to have symptoms. Will discuss with MD) Social History Tobacco Use Types Packs/Day Years Used Date Smoking Tobacco: Never Smokeless Tobacco: Never Alcohol Use Standard Drinks/Week Comments Never 0 (1 standard drink = 0.6 oz pur e alcohol) Comments Unknown Sex and Gender Information Value Date Recorded Sex Assigned at Female 11/20/2023 1:25 PM EDT Legal Sex Female 6:43 PM EDT Gender Identity Female 11/21/2023 10:07 AM EDT Sexual Orientation Not on file documented as of this encounter Plan of Treatment Not on file documented as of this encounter Visit Diagnoses Not on filedocumented in this encounter Care Teams Raw Stock Machine Feeder Relationship Specialty Start Date End Date Patient, Has No Pcp Or Ref DO NOT EDIT THIS RECORD VIA PROVIDER ON THE FLY PCP - General Scheme Technician 07/21/23 documented as of this encounter
--- OUTSIDE RECORDS SUMMARY | 2024-10-13 20:54 | XMS_ITS | Referral Summary ---
Author Organization [facility] Address [address] [place] [address] Care Team Providers Care Purification Operator Name Role Phone Patient, Has No Pcp Or Ref Primary Care Provider Unavailable Encounters Date Type Department Care Team Description 07/30/2024 2:12 PM EST - 07/30/2024 5:07 PM EST Emergency [facility] Emergency Department [address] [place] [address] Lacie Oh MD Acute cystitis without hematuria (Primary Dx) Discharge Disposition: Home or Self Care (01) from Last 3 Months Allergies Active Allergy Reactions Criticality Noted Date [...] mouth 2 times a day. 10 capsule 4 Active Active Problems Problem Noted Date Diagnosed Date Strep pharyngitis 11/20/2023 Social History Tobacco Use Types Packs/Day Years [...] 07/30/2024 1:03 PM EST Plan of Treatment Not on file Procedures * Due to [place] state law, this organization might not be sharing [...] to Health Maintenance Results * Due to [place] state law, this organization might not be sharing negative HIV tests. * Syphilis Antibody w/Reflex to RPR (Diagnosis) Titer & Confirmation (07/30/2024 3:42 PM EST) Treponema Pallidum Antibodies Interp Negative Negative 07/30/2024 5:20 PM EST [facility] Blood Structure of peripheral vein / Unknown Venipuncture / Unknown 07/30/2024 3:42 PM EST 07/30/2024 4:15 PM EST us Lacie Oh MD LAB BLOOD ORDERABLES Final Res ult Performing Organization Address City/State/[facility] Co de Phone Number [facility] [address] [facility] [address] [place] [address], [place] [phone] * (ABNORMAL) Microscopic Urinalysis Only (07/30/2024 2:35 PM EST) RBC, Urine 30-40(A) None Seen, 0-2 /HPF 07/30/2024 3:15 PM EST [facility] WBC, Urine 30-40(A) None Seen, 0-2 /HPF 07/30/2024 3:15 PM EST [facility] Squamous Epithelial Cells, Urine 3-5 /HPF 07/30/2024 3:15 PM EST [facility] Bacteria, Urine Small(A) None Seen /HPF 07/30/2024 3:15 PM EST [facility] Urine Urine specimen collection, clean catch / Unknown Non-Blood Collection / Unknown 07/30/2024 2:35 PM EST 07/30/2024 2:51 PM EST us Pradeep Morataya MD LAB URINE ORDERABLES Shannon l Result [facility] [address] [address] [address] [place] [address], [place] [phone] * (ABNORMAL) Urinalysis W/Reflex to Microscopic & Culture (07/30/2024 2:35 PM EST) Color, Urine Yellow Yellow 07/30/2024 2:51 PM EST [facility] Clarity, Urine Clear Clear 07/30/2024 2:51 PM EST [facility] Specific [place], Urine 1.020 1.005 - 1.030 07/30/2024 2:51 PM EST [facility] pH, Urine 6.5 5.0 - 8.0 07/30/2024 2:51 PM EST [facility] Protein, Urine Negative Negative mg/dL 07/30/2024 2:51 PM EST [facility] Glucose, Urine Negative Negative mg/dL 07/30/2024 2:51 PM EST [facility] Ketones, Urine Trace(A) Negative mg/dL 07/30/2024 2:51 PM EST [facility] Bilirubin, Urine Negative Negative 07/30/2024 2:51 PM EST [facility] Blood, Urine Large(A) Negative 07/30/2024 2:51 PM EST [facility] Nitrite, Urine Negative Negative 07/30/2024 2:51 PM EST [facility] Urobilinogen, Urine 0.2 0.2 - 1.0 E.U./dL 07/30/2024 2:51 PM EST [facility] Leukocyte Esterase, Urine Large(A) Negative 07/30/2024 2:51 PM EST [facility] Urine Urine specimen collection, clean catch / Unknown Non-Blood Collection / Unknown 07/30/2024 2:35 PM EST 07/30/2024 2:43 PM EST us Pradeep Morataya MD LAB URINE ORDERABLES Shannon l Result Performing Organization Address [facility] Co de Phone Number [facility] [address] [address], [place] [phone] * HCG Qualitative, Urine (07/30/2024 2:35 PM EST) HCG Qualitative, Urine Negative 07/30/2024 3:14 PM EST [facility] Comment: hCG may be negative in [...] ORDERABLES Final Res ult Performing Organization Address [facility] Phone Number [facility] [address] [address], [place] [phone] * Urine Culture, Routine (07/30/2024 2:35 PM EST) Urine Culture >100,000 CFU/mL mixed gram positives; multiple organisms are present, suggestive of contamination at the time of collection. [place] [facility] 08/01/2024 8:45 AM EST [facility] Urine Urine specimen collection, clean catch / Unknown Non-Blood Collection / Unknown 07/30/2024 2:35 PM EST 07/30/2024 2:51 PM EST us Pradeep Morataya MD LAB MICROBIOLOGY - GENERA L ORDERABLES Final Result Performing Organization Address [facility] Co de Phone Number [facility] [address] [address], [place] [phone] * Chlamydia/Neisseria gonorrhoeae RNA (01/14/2024 3:20 PM EDT) Chlamydia trachomatis RNA, TMA NOT DETECTED NOT DETECTED 01/15/2024 8:34 PM EDT [facility] Neisseria Gonorrhoeae RNA, TMA NOT DETECTED NOT DETECTED 01/15/2024 8:34 PM EDT [facility] Comment: The analytical performance characteristics of this assay, when used to test SurePath(TM) specimens have been determined by [employer]. The modifications have not been cleared or approved by the FDA. This assay has been validated pursuant to the CLIA regulations and is used for clinical purposes. For additional information, please refer to https://education.[employer]/faq/TZF671 (This link is being provided for information/ educational purposes only.) Urine Voided urine specimen / Unknown Non-Blood Collection / Unknown 01/14/2024 3:20 PM EDT 01/14/2024 3:20 PM EDT Narrative [facility]ST[facility] - 01/15/2024 8:34 PM EDT [facility] Received Date: Mariela KESSLER LAB URINE ORDERABLES Final Re sult FRANKO SINGH [address] [place] [address] [address] Floor, [place] [address], [place] [phone] from Last 3 Months or Most Recently Relevant to Health Maintenance Care Teams Purification Operator Relationship Specialty Start Date End Date Patient, Has No Pcp Or Ref DO NOT EDIT THIS RECORD VIA PROVIDER ON THE FLY PCP - General Private Pilot 07/21/23
--- OUTSIDE RECORDS SUMMARY | 2024-10-13 20:54 | XMS_ITS | Clinical Summary ---
Author Organization [facility] Address [address] [place] [phone] Phone Care Team Providers Care Water Project Manager Name Role Phone Amanda Chaudhari Primary Care Provider [phone] Allergies Active Allergy Reactions Criticality Noted Date Comments Amoxicillin Hives 06/15/2024 Ibuprofen Hives 06/15/2024 Sumatriptan Hives 06/15/2024 Ketamine Anaphylaxis High 06/15/2024 Naproxen Anaphylaxis,Hives High 05/29/2015 Penicillins Hives 06/15/2024 Sulfa (Sulfonamide Antibiotics) Hives 06/04 Hydrocodone-Acetaminophen Hives 06/15/2024 Medications UNABLE TO FIND Take 1 capsule by mouth 1 (one) time each day. Med Name: Doctor Formulated Probiotics Active Active Problems Problem Noted Date Diagnosed Date Sepsis without acute organ d ysfunction, due to unspecified organism 06/17/2024 Sepsis 06/16/2024 UTI (urinary tract infection) 06/15/2024 Surgical History Surgery Date Site/Laterality Comments HAND SURGERY PROCEDURE:HAND SURGERY DENTAL SURGERY PROCEDURE:DENTAL SURGERY FOREIGN BODY REMOVAL 06/04/2016 Left PROCEDURE:FOREIGN BODY REMOVAL;COMMENT:Procedure: REMOVAL OF FOREIGN BODY OF LEFT THUMB CPT CODE 23300; Surgeon: Chalino Rodriguez MD; Location: [facility]; Service: Plastics; Laterality: Left; Medical History Medical History Date Comments Migraines DX:Migraines PCOS (polycystic ovarian syndrome) DX:PCOS (polycystic ovarian syndrome) Asthma DX:Asthma;COMMEN T:childhood Migraine headache DX:Migraine he adache Eczema DX:Eczema Social History Tobacco Use Types Packs/Day Years Used Date Smoking Tobacco: Never Smokeless Tobacco: Never Tobacco Cessation:Counseling Given: Not Answered Alcohol Use Standard Drinks/Week Comments Yes 0 (1 standard drink = 0.6 oz pur e alcohol) Housing Instability Answer Date Recorde d Are you worried that in the next 2 months you may not have stable housing? No 06/18/2024 Food Access & Nutrition Answer Date Rec orded Do you have access to a vari ety of food including fruits and vegetables? Yes 06/18/2024 Access to Healthcare Answer Date Record ed Within the last 3 months, ho w many times did you visit the emergency department for your medical care? 0 06/18/2024 Health Literacy Answer Date Recorded How often do you need to hav e someone help you when you read instructions, pamphlets, or other written material from your doctor or pharmacy? Never 06/18/2024 Caregiver: How often do you need to have someone help you when you read instructions, pamphlets, or other written material from your doctor or pharmacy? Not on file 06/18/2024 Financial Risk Answer Date Recorded How hard is it for you to pa y for the very basics like food, housing, medical care, and air conditioning / heating? Not very hard 06/18/2024 Transportation Answer Date Recorded Has the lack of transportati on kept you from meetings, work, or from getting things needed for daily living? No Has the lack of transportati on kept you from medical appointments or from getting medications? No 06/18/2024 Social Isolation Answer Date Recorded How often do you feel lonely or isolated from th ose around you? Rarely 06/18/2024 Food Risk Answer Date Recorded Within the past 12 months we worried whether our food would run out before we got money to buy more. Never true 06/18/2024 Within the past 12 months th e food we bought just didn't last and we didn't have money to get more. Never true 06/18/2024 Dependent Care Answer Date Recorded Do you need help finding or paying for care for your loved ones. For example, child care cook or elderly care for an older adult? No 06/18/2024 Education Answer Date Recorded Do you think completing more education or training, like finishing a GED, going to college, or learning a trade, would be helpful for you? N/A 06/18/2024 Employment and Income Answer Date Recor ded During the last four weeks, have you been actively looking for work? No 06/18/2024 Living Situation Answer Date Recorded What is your living situation? 1 08/18/2023 Comments Unknown Sex and Gender Information Value Date Recorded Sex Assigned at Female 06/16/2024 12:47 PM EST Legal Sex Female 10:39 AM EST Gender Identity Female 06/16/2024 12:47 PM EST Sexual Orientation Straight 06/16/2024 12 :47 PM EST Obstetrics History Last Filed Vital Signs Vital Sign Reading Time Taken Comments Blood Pressure 127/76 06/19/2024 6:05 PM EST Pulse 72 06/19/2024 6:05 PM EST Temperature 37.2 ??C (99 ??F) 06/19/2024 6:05 PM EST Respiratory Rate 16 06/19/2024 6:05 PM EST Oxygen Saturation 98% 06/19/2024 6:05 PM EST Inhaled Oxygen Concentration - - Weight 83.5 kg (184 lb) 06/16/2024 10:44 AM EST Height 157.5 cm (5' 2 ) 06/16/2024 10:44 AM EST Body Mass Index 33.65 06/16/2024 10:44 AM EST Plan of Treatment Health Maintenance Due Date Last Done Comments Hepatitis B Vaccines (1 of 3 - 19+ 3-dose series) 2013 Cervical Cancer Screening: P ap Smear 2015 COVID-19 Vaccine ( - 2023-2 5 season) 2024 Influenza Vaccine (#1) 2024 04/24/2015 Depression Screening 06/16/2024 HIV Screening 06/16/2024 Hepatitis C Screening 06/16/2024 Social Influencers of Health Screening 06/18/2025 06/18/2024 DTaP,Tdap,and Td Vaccines (2 - Td or Tdap) 11/04/2026 11/04/2016 Varicella Vaccines Aged Out 09/25/2015, 04/27/2015 No longer eligible based on patient's age to complete this topic Hepatitis A Vaccines Aged Out 01/11/2016, 04/24/2015 No longer eligible based on patient's age to complete this topic HIB Vaccines Aged Out No longer eligi ble based on patient's age to complete this topic HPV Vaccines Aged Out No longer eligi ble based on patient's age to complete this topic IPV Vaccines Aged Out No longer eligi ble based on patient's age to complete this topic MMR Vaccines Aged Out No longer eligi ble based on patient's age to complete this topic Meningococcal ACWY Vaccine Aged Out N o longer eligible based on patient's age to complete this topic Meningococcal B Vacine Aged Out No lo nger eligible based on patient's age to complete this topic Pneumococcal Vaccine: Pediatrics (0 to 5 Years) and At-Risk Patients (6 to 64 Years) Aged Out No longer eligible b ased on patient's age to complete this topic RSV Immunization Patients Under 20 months Aged Out No longer eligible b ased on patient's age to complete this topic Insurance MEDICAID - [place] Advance Directives * Full Code - Confirmed (Latest Code Status on File) Date Activated Date Inactivated Comments 06/16/2024 2:34 PM 06/19/2024 8:54 PM This code status was ascertained in the following way: Code status discussion: discussion with patient To update the patient's code status, place a code status order. Do not modify or discontinue any currently active code status orders. * Full Code - Default Date Activated Date Inactivated Comments 06/15/2024 9:26 PM 06/16/2024 2:10 AM This is or xiao is used when code status has not been discussed with the patient, or code status is otherwise unknown/unconfirmed To update the patient's code status, place a code status order. Do not modify or discontinue any currently active code status orders. Care Teams Water Project Manager Relationship Specialty Start Date End Date Amanda Chaudhari [address] [place] [phone] PCP - General Family Medicine 06/15/24
[2024-10-13 20:57] VITALS: BP 105/68; PULSE 81; RESP 20; TEMP 37.1; O2SAT 97
[2024-10-13] MEDS: Cyclobenzaprine HCl 5 MG TABLET PO (21:57)
[2024-10-13 21:58] VITALS: RESP 18
[2024-10-13] MEDS: Morphine Sulfate 2 MG/ML CARTRIDGE 1 MG IM (21:58)
[2024-10-13 22:05] VITALS: BP 139/88; PULSE 87; RESP 17; TEMP 36.4; O2SAT 98
== END 2024-10-13 22:06 | disposition home or self-care (01) ==
PROVIDERS: Physician Assistant; Emergency Provider Emergency Medicine
DX: M54.42 Lumbago with sciatica, left side (principal); M54.41 Lumbago with sciatica, right side; M79.605 Pain in left leg; M79.604 Pain in right leg; Z79.899 Other long term (current) drug therapy
CPT/HCPCS: 36415; 74018; 80053; 81001; 83690; 84702; 85025; 96372; 99284; J0461; J2270

== ENCOUNTER → 2024-10-13 14:59 | Outpatient (BNV) | payer OTHER, SELFPAY | PROVIDERS: Visit Provider Radiology Diagnostic Radiology | DX: R10.9 Unspecified abdominal pain (principal); M54.50 Low back pain, unspecified | CPT/HCPCS: 74018 ==